=== PATIENT | male | born 1950 | race Caucasian/White ===

== ENCOUNTER 2024-12-24 14:24 | Outpatient (CLI) | payer MEDICARE, SELFPAY ==
--- NOTE | ~2024-12-24 | CT_ITS ---
History: Fall PROCEDURE: CT head without contrast. COMPARISON: None TECHNIQUE: Axial imaging of the head performed from the skull base to the vertex without IV contrast. Sagittal a nd coronal reformations obtained. DLP: 605 mGy-cm FINDINGS: The ventricles are enlarged. The dilatation of the ventricles is proportional to the degree of sulcal prominence, not uncommon in the senescent brain. Decreased attenuation is identified within the periventricular white matter, likely secondary to micr ovascular ischemic disease, in a patient of this age. There is no mass, mass effect or midline shift. There is no abnormal extra-axial fluid collection or intracranial hemorrhage. Visualized paranasal sinuses are clear. The mastoid air cells are well aerated. No acute displaced fractures within the overlying cranium. Impression: No acute intracranial hemorrhage or suspicious mass effect. Reviewed, dictated and finalized at location A. Impression: No acute intracranial hemorrhage or suspicious mass effect.
--- NOTE | ~2024-12-24 | XR_ITS ---
XR shoulder RT min 2V Ordering provider: Idania Shah History: . Injury of rt shoulder . Comparison: None. FINDINGS: BONES: No acute fracture or dislocation. Sclerotic area in the greater tuberosity. Possibility of per meative process in the proximal humerus cannot be excluded. Clinical correlation and follow-up advise d. Elevation of the humeral head is noted. JOINT SPACES: The acromioclavicular joint is normal. The glenohumeral joint shows severe osteoarthrit ic changes with narrowing of the joint space.. SOFT TISSUES: Rounded soft tissue density is seen adjacent to the proximal humerus which may be summa tion shadow but CT is advised for further evaluation to exclude a mass. IMPRESSION: No acute fractures seen. Severe osteoarthritic changes of the glenohumeral joint. Possible soft tissue density near to the proximal humerus. CT is advised to exclude a mass. Reviewed, dictated and finalized at location A. IMPRESSION: No acute fractures seen. Severe osteoarthritic changes of the glenohumeral joint. Possible soft tissue density near to the proximal humerus. CT is advised to exc lude a mass.
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
--- OUTSIDE RECORDS SUMMARY | 2024-12-24 14:37 | XMS_ITS | Continuity of Care Document ---
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 [address] , [place], [place], [id number], [place]. tel:[phone] Referring Provider: Walt Callahan, [address] [facility] [address], [place], [address]. tel:[phone] Family History Family Member Type Diagnosis Age At Onset No Information Payers Payer name Insurance type Covered libertarian ID Authoriza tion(s) MEDICARE [id number] Social History Type Description Quantity Date Captured Comments Sex Male Smoking Status No Information Chief Complaint And Reason For Visit No Information Reason For Referral Reason For Referral No Information History Of Present Illness Encounter Date Complaint History Of Prese nt Illness No Information Functional Status Date Functional Assessmen t No Information Instructions Date Instruction Additional Infor mation No Information Assessments Type Assessment Date No Information Patient Care Teams Name Effective Dates (start - stop) Status Members No Information
--- OUTSIDE RECORDS SUMMARY | 2024-12-24 14:37 | XMS_ITS | Encounter Summary ---
Author Organization [facility] Address [address] [place] [address] Care Team Providers Care Bending Roll Hand Name Role Phone Mario Carroll MD Primary Care Provider [phone] Encounter Details Date Type Department Care Team (Latest Contact Info) Description 11/04/2024 Results Follow-Up [facility] GASTROENTEROLOGY - [address] [facility] [address] [address] [facility] [address] [place] [address] [place] [address] [facility] [address] [place] [address] PATHOLOGY, PATHOLOGY Social History Tobacco Use Types Packs/Day Years Used Date Smoking Tobacco: Former Cigarettes Feeling Safe Answer Date Recorded Are you in a relationship wi th someone who hurts you emotionally and/or physically? 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
--- OUTSIDE RECORDS SUMMARY | 2024-12-24 14:37 | XMS_ITS | Continuity of Care Document ---
Author Organization [facility] Address [address] [place] [address] Phone Care Team Providers Care Lime Slaker Name Role Phone Walt Callahan MD Unavailable Unavailable Allergies, Adverse Reactions, Alerts Substance Reaction Status Criticality Penicillins Active No Information Medications Medication Instructions Dosage Effective Dates (start - stop) Status Comments Naprosyn 500 mg tablet take 1 tablet by oral route 2 times every day with food 500 MG - Active METOPROLOL SUCCINATE (unknown strength) Not Available - Active LOVASTATIN (unknown strength) Not Available - Active METFORMIN HCL (unknown strength) Not Available - Active ASPIRIN EC (unknown strength) Not Available - Active Naprosyn 500 mg tablet take 1 tablet by oral route 2 times every day with food 500 MG - No Longer Active Procedures Procedure Date OFFICE/OUTPATIENT VISIT EST OFFICE/OUTPATIENT VISIT EST OFFICE/OUTPATIENT VISIT EST RADEX SPI LUMBOSAC 2/3 VIEWS OFFICE/OUTPATIENT VISIT EST Rx certified EHR RADEX SPI LUMBOSAC 2/3 VIEWS OFFICE/OUTPATIENT VISIT EST POSTOP FOLLOW-UP VISIT POSTOP FOLLOW-UP VISIT POSTOP FOLLOW-UP VISIT OFFICE/OUTPATIENT VISIT EST OFFICE/OUTPATIENT VISIT EST OFFICE/OUTPATIENT VISIT EST OFFICE/OUTPATIENT VISIT NEW Advance Directives Directive Yes / No Effective Date File Name No Information Encounters Encounter Description Practice Location Reason(s) For Visit Diagnoses Date Provider Providers Copied on Encounter OFFICE/OUTPA TIENT VISIT EST [facility], [address], [address], [place] tel:[phone] [facility] My left leg is hurting alot (chief complaint) Body mass index (BMI) 38.0-38.9, adultLeft lumbar radiculitis Nov- 7 Callahan Walt. [address] [facility] [place], [id number] . tel: [phone] OFFICE/OUTPA TIENT VISIT EST [facility], [address] [facility] [address] [address], [place], [address], [place] tel:[phone] [facility] I am about the same (chief complaint) Body mass index (BMI) 38.0-38.9, adultPersonal history of nicotine dependenceLow back pain Callahan Walt. [address] [facility] [place], [place], [id number] . tel: [phone] OFFICE/OUTPA TIENT VISIT EST [facility], [address], [address], [place] tel:[phone] [facility] The medicine and therapy did not help much (chief complaint) Body mass index (BMI) 38.0-38.9, adultLow back pain 6 [place] Godoy. [address] [facility] [place], [id number] . tel: [phone] [facility], [address] [facility] [address] [address], [place], [address], [place] tel:[phone] [facility] No Information 6 Callahan Walt. [address] [facility] [place], [id number] . tel:[phone] OFFICE/OUTPA TIENT VISIT EST [facility], [address] [address], [place], [address], [place] tel:[phone] [facility] My back and legs hurt alot (chief complaint) Low back painBody mass index (BMI) 38.0-38.9, adult Jun- 6 [place] Godoy. [address] [place], [place], [id number] . tel: [phone] Referring Provider: Mike Mckeon, RETIRED [address] [facility] [address], [place], [address]. tel:[phone] OFFICE/OUTPA TIENT VISIT EST [facility], [address], [address], [place] tel:[phone] [facility] Some of my back and left leg pain is coming back (chief complaint) ObesityLow Back PainHip pain, left 5 [place] Godoy. [address] [facility] [place], [place], [address] . tel: [phone] Referring Provider: Mike Mckeon, RETIRED [address], [place], [address]. tel:[phone] [facility], [address], [address], [place] tel:[phone] [facility] I am doing pretty good (chief complaint) Lumbar StenosisObesity 5 [place] Godoy. [address] [facility] [place], [address] . tel: [phone] [facility], [address], [address], [place] tel:[phone] [facility] I am feeling pretty good (chief complaint) ObesityLumbar Radiculopathy 5 [place]. [address] [place], [address] . tel: [phone] [facility], [address], [address], [place] tel:[phone] [facility] I am feeling pretty good (chief complaint) post-op (chief complaint) ObesityLumbar Radiculopathy 5 [place]. [address] [address] [place], [address] . tel: [phone] [facility], [address], [address], [place] tel:[phone] [facility] Lumbar Radiculopathy 5 [place] Godoy. [address] [place], [place], [address] . tel: [phone] OFFICE/OUTPA TIENT VISIT EST [facility], [address], [address], [place] tel:[phone] [facility] My left leg hurts alot (chief complaint) ObesityLumbar Radiculopathy 5 [place] Godoy. [address] [address] [facility], [place], [place], [address] . tel: [phone] OFFICE/OUTPA TIENT VISIT EST [facility], [address], [address], [place] tel:[phone] [facility] My left leg and back hurt alot today (chief complaint) ObesityLumbar StenosisLumbar Radiculopathy 4 [place] Godoy. [address] [place], [place], [address] . tel: [phone] OFFICE/OUTPA TIENT VISIT EST [facility], [address], [address], [place] tel:[phone] [facility] My left leg is pretty bad today (chief complaint) ObesityLumbar Radiculopathy 0 8 4 [place] [address]. [address] [place], [place], [address] . tel: [phone] OFFICE/OUTPA TIENT VISIT NEW [facility], [address], [address], [place] tel:[phone] [facility] My back and left leg bother me (chief complaint) ObesityLow Back PainParasthesia s of any extremity 0 5- 4 [place] Godoy. [address] [place], [place], [address] . tel: [phone] Referring Provider: Mike Mckeon, RETIRED [address] [facility] [address], [place], [address]. [phone] Family History Family Member Type Diagnosis Age At Onset Father Problem (finding) Heart disease Mother Problem (finding) cancer Sister Problem (finding) Maternal history of loraine betes mellitus Payers Payer name Insurance type Covered democrat ID Authoriza tion(s) [employer] Gold Choice PF OT [id number] Social History Type Description Quantity Date Captured Comments Alcohol Use Details Caffeine Use Details Unknown Tobacco Use Status Occasional tobacco smoker Smoking Status Light tobacco smoker Smoking Tobacco Use Details Cigar: No Details Available Cigar: 2 Cigars per day Sex Male Vital Signs Date / Time: Height Weight BMI Pulse Rate Blood Pressure Temperature Respiratory Rate Body Surface Area Head Circumference Head Circ. Percentile Wt./Omari. Percentile BMI percentile Pulse Ox Inhaled Ox 10:58 AM 68.00 in 113.398 kg (250.00 lbs) 38.0 1 kg/m eter (2) Chief Complaint And Reason For Visit From encounter dated '11/30/2016 10:35'. My left leg is hurting alot (chief complaint) Reason For Referral Reason For Referral No Information Plan Of Treatment Date Type Action Status Goal Tobacco cessation counseling completed Referral Ordered: INJ FORAMEN EPIDURAL L/S LT L2 Appointment date/timeframe: 12/04/2016 ordered Referral Referred To: Jessi Brooks [address] [place], [phone] Ordered: Referrals: Jessi Brooks -Maintenance Department Manager Consult ordered Referral Ordered: MRI SPI CANAL&CNTS C-/C+ LMBR Appointment date/timeframe: 08/11/2016 ordered Referral Ordered: RADEX CH 2 VIEWS FRNT&LAT ordered Referral Ordered: INJ FORAMEN EPIDURAL L/S LT L3 possible L4 ordered Referral Ordered: MRI SPI CANAL&CNTS LMBR C-MATRL Appointment date/timeframe: 07/24/2014 ordered Referral Ordered: MUSC TEST DONE W/N TEST COMP (EMG/NCS) Bilateral lower ext Appointment date/timeframe: 07/13/2014 ordered Referral Ordered: RADEX SPI LUMBOSAC 2/3 VIEWS ordered History Of Present Illness Encounter Date Complaint History Of Prese nt Illness My left leg is hurting alot I am about the same The medicine and therapy did not help much My back and legs hurt alot Some of my back and left leg pain is coming back I am doing pretty good I am feeling pretty good I am feeling pretty good My left leg hurts alot My left leg and back hurt alot t arturo My left leg is pretty bad today My back and left leg bother me Functional Status Date Functional Assessmen t No Information Instructions Date Instruction Additional Infor mation At this time I feel the patient would benefit from a course of non-operative management. I will start the patient on Naprosyn 500 mg p.o b.i.d for the next three weeks. Finally, I will arrange a course of epidural steroid injections, left L2 transforaminal by my partner Dr. Romero or Dr. Oliver. I would like to see the patient again in 4-6 weeks. All the patient's questions were answered. Related to Left lumbar radiculitis Dietary needs education Related to Body mass index (BMI) 38.0-38.9, adult Take medication as directed. Rel ated to Left lumbar radiculitis Continue home exercise program. Related to Left lumbar radiculitis Dietary needs education Related to Body mass index (BMI) 38.0-38.9, adult Continue home exercise program. Related to Low back pain Dietary needs education Related to Body mass index (BMI) 38.0-38.9, adult At this time an MRI of the lumbar spine with and without contrast is needed to assess for soft tissue or disc pathology that may be contributing to the patient's continued low back pain symptoms. I encouraged the patient to continue doing the home exercises prescribed by the physical therapist. I will see the patient again after the MRI is completed. All the patient's questions were answered. Related to Low back pain Dietary needs education Related to Body mass index (BMI) 38.0-38.9, adult At this time, I feel the patient would benefit from a course of non-operative management. I will start the patient on Naprosyn 500mg p.o. b.i.d. for the next three weeks. I will also start the patient in physical therapy to work on range of motion and strengthening of the lumbar spine and modalities as seen fit by the physical therapist. I discussed with the patient the importance of continuing home therapy once formal therapy has ended. I would like to see the patient again in six weeks. All the patient's questions were answered. Related to Low back pain Dietary needs education Related to Body mass index (BMI) 38.0-38.9, adult Take medication as directed. Rel ated to Low back pain Continue home exercise program. Related to Low back pain At this time, I feel the patient would benefit from a course of non-operative management. I will start the patient on Naprosyn 500mg p.o. b.i.d. for the next three weeks. I will also start the patient in physical therapy to work on range of motion and strengthening of the lumbar spine and modalities as seen fit by the physical therapist. I discussed with the patient the importance of continuing home therapy once formal therapy has ended. I would like to see the patient again in six weeks. All the patient's questions were answered. Related to Hip pain, left Continue home exercise program. Related to Low Back Pain Take medication as directed. Rel ated to Low Back Pain Dietary needs education Related to Obesity, unspecified Take medication as directed. Rel ated to Lumbar Stenosis Continue home exercise program. Related to Lumbar Stenosis Dietary needs education Related to Obesity, unspecified Dietary needs education Related to Obesity, unspecified At this time, we hav e exhausted all non-operative management for this patient in the form of physical therapy, anti-inflammatories, epidural steroid injections, and life style modifications, all of which have failed to alleviate the patient's back and leg symptoms. I feel the patient would be an excellent candidate for a transforaminal lumbar interbody fusion at the L3-4 and L4-5 levels. The risks and benefits associated with the procedure were discussed at length with the patient which include bleeding, infection, nerve injury, non-union, continued pain, and need for further surgery. I also discussed the risk of injury to a nerve resulting in weakness in one or both legs, risk of re-herniation of more disc material, risk of dural tear resulting in a CSF leak requiring further surgery, and the risk of developing blood clots in their leg that could result in pulmonary embolus or stroke as well as possible blindness. The patient understood these risks and benefits and wished to proceed with the above-stated procedure. We will have the patient see their primary care provider prior to surgery for pre-operative evaluation and risk stratification for surgery. In addition we will obtain routine blood work prior to surgery. All the patient's questions were answered. Related to Lumbar Radiculopathy Dietary needs education Related to Obesity, unspecified Continue home exercise program. Related to Lumbar Radiculopathy Take medication as directed. Rel ated to Lumbar Radiculopathy At this time I feel the patient would benefit from a course of non-operative management. I want the patient to continue taking the Naprosyn twice a day for the next three weeks. In addition, I will start the patient in physical therapy twice a week for three weeks to work on range of motion and strengthening of the back and legs. Finally, I will arrange a course of epidural steroid injections, left L3 possible L4 transforaminal epidural steroid injections. I would like to see the patient again in 4-6 weeks. All the patient's questions were answered. Related to Lumbar Radiculopathy Dietary needs education Related to Obesity, unspecified Continue home exercise program. Related to Lumbar Radiculopathy Take medication as directed. Rel ated to Lumbar Radiculopathy At this time an MRI of the lumbar spine is needed to assess for soft tissue or disc pathology that may be contributing to the patient's back pain and right leg radicular type symptoms. While waiting for the MRI, I want the patient to continue taking the Naprosyn 500mg PO BID. I will see the patient after the MRI is completed. All the patient's questions were answered. Related to Lumbar Radiculopathy Dietary needs education Related to Obesity, unspecified Dietary needs education Related to Obesity, unspecified Take medication as directed. Rel ated to Low Back Pain Continue home exercise program. Related to Low Back Pain Assessments Type Assessment Date assessment Body mass index (BMI) 38.0-38.9, adult assessment Left lumbar radiculitis 017 Patient Care Teams Name Effective Dates (start - stop) Status Members No Information
--- OUTSIDE RECORDS SUMMARY | 2024-12-24 14:37 | XMS_ITS | Clinical Summary ---
Author Organization [facility] Address [address] [place] [address] Care Team Providers Care Agriculture Teacher Name Role Phone Mario Carroll MD Primary Care Provider + Yahaira Blair TOBACCO PRIZER-PORTFOLIO MGR Unavailable + Mario Carroll MD Unavailable + Source Comments [facility],non-owned Affiliates and Associated Physician Practices is amultiple site organization consisting of ambulatory clinics and hospital sitesin [place], [place], [place] and [place]. This disclosure is being madepursuant to the Care Everywhere program and may not contain all information available regarding this patient. Last updated 18.[facility] Allergies Active Allergy Reactions Criticality Noted Date Comments Penicillins Unknown 11/06/2024 Medications * Be aware that medications may not be up to date on this document. Alwaysverify current medications with the patient. oxyCODONE-acet aminophen (Percocet) 10-325 MG tablet take 1 tablet by oral route every 8 hours for 90 days Oral 3 for 90 Active rosuvastatin (Crestor) 20 MG tabletIndicati ons:PAF (paroxysmal atrial fibrillation) (HCC),Type 2 diabetes mellitus without complication, without long-term current use of insulin (HCC) Take 1 (one) tablet by mouth once daily 90 tablet 1 09/10/19 24 Active albuterol HFA (ProAir HFA) 108 (90 Base) MCG/ACT inhalerIndicat ions:Shortness of breath Inhale 2 (two) puffs by mouth every 6 hours as needed 8.5 g 3 08/19/19 25 Active gabapentin (Neurontin) 100 MG capsule Take 1 (one) capsule by mouth 3 times daily 270 capsule 1 08/19/19 25 Active potassium chloride ER 10 MEQ tablet Take 1 (one) tablet by mouth once daily 90 tablet 1 08/19/19 25 Active lisinopril (Prinivil; Zestril) 5 MG tabletIndicati ons:Type 2 diabetes mellitus without complication, without long-term current use of insulin (HCC) Take 1 (one) tablet by mouth once daily 90 tablet 1 08/19/19 25 Active metFORMIN (Glucophage) 500 MG tabletIndicati ons:Type 2 diabetes mellitus without complication, without long-term current use of insulin (HCC) Take 1 (one) tablet by mouth 2 times daily with morning and evening meal 180 tablet 1 08/19/19 25 Active Additional Information Patient not taking.Reported on 11/06/2024 nitroGLYCERIN (Nitrostat) 0.4 MG tablet Dissolve 1 (one) tablet under the tongue every 5 minutes as needed for Angina 25 tablet 08/19/19 25 Active naloxone HCl (Narcan) 4 MG/0.1ML nasal spray EMERGENCY USE ONLY: Administer 1 spray (4 mg) in one nostril one time. May repeat in alternating nostrils every 2-3 min until responsive or EMS arrives. 11/05/19 25 Active fluticasone propionate (Flonase) 50 MCG/ACT nasal spray ADMINISTER 2 SPRAYS IN EACH NOSTRIL DAILY 48 g 1 11/18/19 25 Active Eliquis 5 MG tablet TAKE 1 TABLET BY MOUTH TWICE A DAY 60 tablet 12/03/19 25 Active amiodarone (Cordarone) 200 MG tablet TAKE 1 TABLET BY MOUTH EVERY DAY 30 tablet 12/03/19 25 Active metoprolol tartrate IR (Lopressor) 25 MG tablet TAKE 1 TABLET BY MOUTH TWICE A DAY 60 tablet 12/03/19 25 Active amiodarone (Cordarone) 200 MG tablet Take 1 (one) tablet by mouth once daily 11/06/19 25 025 Discontinued apixaban (Eliquis) 5 MG tablet Take 1 (one) tablet by mouth 2 times daily 11/07/19 25 025 Discontinued clopidogrel (plaVIX) 75 MG tablet Take 1 (one) tablet by mouth once daily 11/07/19 25 025 metoprolol tartrate IR (Lopressor) 25 MG tablet Take 1 (one) tablet by mouth 2 times daily 11/05/19 025 Discontinued Active Problems Problem Noted Date Diagnosed Date Aortic valve disorder 11/05/2024 Complication of surgical procedure 11/05/2024 Primary osteoarthritis of right ankle 11/05/2024 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 gonzalo 11/05/2024 Lumbar radiculopathy 11/05/2024 Antiplatelet or antithrombotic long-term use Acute blood loss anemia 10/31/2024 Gastrointestinal hemorrhage with melena 10/31/19 Elevated troponin 10/29/2024 Hx of CABG 10/28/2024 Acute gastrointestinal hemorrhage 10/28/2024 Dyspnea on exertion 10/06/2024 Prediabetes 10/06/2024 Cardiovascular stress test abnormal 08/25/2024 Pain in left lower leg 09/10/2023 Obesity, morbid 09/10/2023 Chest pain 03/19/2023 09/10/2023 Seasonal allergic rhinitis 01/23/202309/10 Neuropathy 01/23/2023 09/10/2023 Gout 01/23/2023 09/10/2023 S/P reverse total shoulder arthroplasty, left 09/10/2023 COPD (chronic obstructive pulmonary disease) 08/202109/10/2023 Type 2 diabetes mellitus without complication HLD (hyperlipidemia) 05/16/2019 Atherosclerotic heart diseas e of [place] coronary artery without angina pectoris 05/16/2019 HTN (hypertension) 05/16/2019 PAF (paroxysmal atrial fibrillation) 05/16/2019 Aortic valve stenosis 11/09/2017 09/10/2023 Primary erectile dysfunction 10/15/201712/2023 Chronic low back pain 10/15/2017 09/10/2023 Resolved Problems Problem Noted Date Diagnosed Date Resolved Date Intermittent claudication 12/07/2020 09/10/2023 Encounters Date Type Department Care Team Description 12/23/2024 Telephone [facility] Family [address], [address] [place] [address] Mario Craroll MD Update 12/02/2024 Refill [facility] [address] [facility], [facility] [address] [place] [phone] Mario Carroll MD Refill Request 11/15/2024 Refill [facility] [address] [phone] Mario Carroll MD Refill Request 11/10/2024 Telephone [facility] [address] [facility], [address] [address] Mario Carroll MD Medication Problem 11/07/2024 Patient Outreach [facility] - Care Coordination [address] [place] [phone] Sharon Jaramillo MSW ER UC Follow-up 11/06/2024 2:22 PM CDT - 11/06/2024 4:29 PM CDT Emergency ER at [facility] [address] [place] [address] Moses Denton MD Other specified hypotension Discharge Disposition: Left Against Medical Advice/Discontinued Care 11/06/2024 8:30 AM CDT Office Visit [facility] [address] [facility], [address] [phone] Lore Chery APRN-PORTFOLIO MGR Acute blood loss anemia (Primary Dx); History of gastrointestinal bleeding; Low blood pressure reading; Weakness; Coronary arteriosclerosis; Atrial fibrillation, unspecified type (HCC); Hyperlipidemia, unspecified hyperlipidemia type; History of coronary artery bypass graft; History of anemia 11/06/2024 Travel 11/06/2024 Nurse Triage [facility] [address] [facility], [address] [phone] Mario Carroll MD Patient Requested Call 10/27/2024 Travel from Last 3 Months Immunizations Immunization Administration Dates Next Due Stampt primary monoval ent 12+ yr 0.3mL Purple cap 12/28/2020,12/07/2020 FLU VACCINE QUAD IIV4 SPLIT 0.25 ML IM 6 INFLUENZA VACCINE 05/06/2022 INFLUENZA VACCINE, HIGH-DOSE , TRIV. (FLUZONE HIGH-DOSE TRIVALENT; 65Y+) (HD-IIV3) 05/06/2024 INFLUENZA VACCINE, QUADR. (A FLURIA, FLUZONE QUADRIVALENT; 6MO+) (IIV4) 04/10/2022 INFLUENZA VACCINE, QUADR. (F LUZONE; FLULAVAL; FLUARIX; AFLURIA QUADRIVALENT; 6MO+), 0.5 ML (IIV4) 04/19/2017 PNEUMOCOCCAL PPSV23 08/18/2019 Pneumococcal Pcv13 Conj 04/19/2017 Family History Medical History Relation Name Comments Other - Cardiac Father Myocardial i nfarction Relation Name Status Comments Father Social History Tobacco Use Types Packs/Day Years Used Date Smoking Tobacco: Former Cigarettes Cigars Smokeless Tobacco: Never Tobacco Cessation:Counseling Given: Not Answered Alcohol Use Standard Drinks/Week Comments Not Currently 0 (1 standard drink = 0.6 oz pur e alcohol) AUDIT-C Answer Date Recorded Q1: How often do you have a drink containing alcohol? Never 11/06/2024 Q2: How many drinks containi ng alcohol do you have on a typical day when you are drinking? Patient does not drink Q3: How often do you have si x or more drinks on one occasion? Never 11/06/2024 PHQ-2 Answer Date Recorded Patient Health Questionnaire-2 Score 0 08/07/2024 Sex and Gender Information Value Date Recorded Sex Assigned at Not on file Legal Sex Male 3:39 PM DICTATING TRANSCRIBING MACHINE SERVICER Gender Identity Not on file Sexual Orientation Not on file Last Filed Vital Signs Vital Sign Reading Time Taken Comments Blood Pressure 142/64 11/06/2024 3:59 PM CDT Pulse 54 11/06/2024 3:59 PM CDT Temperature 36.5 C (97.7 F) 11/06/2024 1:44 PM CDT Respiratory Rate 13 11/06/2024 3:59 PM CDT Oxygen Saturation 96% 11/06/2024 3:59 PM CDT Inhaled Oxygen Concentration - - Weight 111.1 kg (244 lb 14.9 oz) 11/06/2024 1:44 PM CDT Height 172.7 cm (5' 8 ) 11/06/2024 1:44 PM CDT Body Mass Index 37.24 11/06/2024 1:44 PM CDT Plan of Treatment Upcoming Encounters Date Type Department Care Team (Late st Contact Info) Description 02/09/2025 8:45 AM CDT Office Visit [facility] [address] [facility], [facility] [address] [place] [address] Mario Carroll MD [address] [facility] [address] [place] [address] Health Maintenance Due Date Last Done Comments COLOGUARD (AGES 45-75) - COLON CA SCREENING [address] COLONOGRAPHY - COLON CA SCREENING 1950 FIT - COLON CA SCREENING 1950 FLEX SIG - COLON CA SCREENING 1950 HEPATITIS C SCREENING 06/13/1969 DTAP/TDAP/TD VACCINES (1 - Tdap) 1970 ZOSTER VACCINE (1 of 2) 2001 Respiratory Syncytial Virus (RSV) Vaccine Pt: or over 60 yrs (1 - Risk 60-74 years 1-dose series) 2011 AAA SCREENING 2016 DIABETES-FOOT EXAM WITH MONOFILAMENT 05/16/2019 COVID-19 VACCINE ( season) 2024 12/28/2020, 12/07/2020 DIABETES-HGB A1C 04/30/2025 10/28/2024, 10/2024, 11/19/2023, Additional history exists DIABETES - URINE PROTEIN SCREENING 08/08/2025 08/08/2024, 11/19/2023 DIABETES-SERUM CREATININE 11/06/20252024, 11/04/2024, 11/03/2024, Additional history exists DIABETES RETINOPATHY SCREENING 05/09/2026 05/09/2024 (Done Outside Per Report) COLONOSCOPY - COLON CA SCREENING 01/13/2030 01/14/2020 (Done Outside Per Report) Colorectal Cancer Screening 01/13/2030 PNEUMOCOCCAL VACCINE 50+ Completed 08/18/2019, 04/06 INFLUENZA VACCINE Completed 05/06/2024, , 04/10/2022, Additional history exists DEPRESSION SCREENING Completed 08/07/2024, 09/10/19 24 MEDICARE AWV CALENDAR YEAR Completed 08/07/2024, 09/10/2023 HEPATITIS B VACCINE Aged Out No longe r eligible based on patient's age to complete this topic HIB VACCINE Aged Out No longer eligi ble based on patient's age to complete this topic HPV VACCINE Aged Out No longer eligi ble based on patient's age to complete this topic MENINGOCOCCAL (Group B) VACCINE SHARED DECISION-MAKING Aged Out No longer eligible based on patient's age to complete this topic MENINGOCOCCAL GROUPS A/C/Y/W VACCINE Aged Out No longer eligible based on patient's age to complete this topic Procedures Procedure Name Priority Date/Time Associated Diagnosis Comments CARDIAC EKG ORDER 11/07/2024 5:1 0 PM CDT XR CHEST 1VW PORTABLE STAT 11/06/2024 3:07 PM CDT Other specified hypotension TROPONIN-I HIGH SENSITIVE REFLEX 1HOUR Timed 11/06/2024 2:51 PM CDT TROPONIN-I HIGH SENSITIVE BASELINE + 1HR STAT 11/06/2024 1:52 PM CDT B-TYPE NATRIURETIC PEPTIDE STAT 11/06/2024 1:52 PM CDT COMPREHENSIVE METABOLIC PANEL STAT 11/06/2024 1:52 PM CDT CBC W AUTO DIFFERENTIAL STAT 11/06/2024 1:52 PM CDT EKG 12-LEAD STAT 11/06/2024 1:49 PM CDT Other specified hypotension MICROALB/CREAT RATIO URINE RANDOM PANEL Routine 08/08/2024 9:27 AM DICTATING TRANSCRIBING MACHINE SERVICER Type 2 diabetes mellitus without complication, without long-term current use of insulin HEMOGLOBIN A1C Routine 08/08/2024 9:27 AM DICTATING TRANSCRIBING MACHINE SERVICER Type 2 diabetes mellitus without complication, without long-term current use of insulin from Last 3 Months or Most Recently Relevant to Health Maintenance Results * CARDIAC EKG ORDER (11/07/2024 5:10 PM CDT) Narrative 11/07/2024 5:10 PM CDT Ordered by an unspecified provider. us Scanned Document CARDIAC SERVICES ORDERABLES Fin al Result * XR CHEST 1VW PORTABLE (11/06/2024 3:07 PM CDT) Anatomical Region Laterality Modality Chest Radiographic Faith ging 11/06/2024 3:09 PM CDT Narrative 11/06/2024 3:14 PM CDT PROCEDURE(s): XR CHEST 1VW PORTABLE DATE AND TIME OF EXAM(s): 11/06/2024 3:07 PM INDICATION(s): I95.89: Other hypotension. COMPARISON(s): Chest radiograph dated 01/24/2024. FINDINGS: Mediastinal wires are seen. A cardiac loop recorder is seen. There is cardiomegaly. The lung volumes are relatively low. No definite focal consolidation or infiltrate is seen. No pneumothoraces or pleural effusion is seen. No acute osseous abnormalities are seen. > Interpreting Provider: Keiry Palomares MD on 11/06/2024 3:14 PM Procedure Note Keiry Palomares MD - 11/06/2024 PROCEDURE(s): XR CHEST 1VW PORTABLE DATE AND TIME OF EXAM(s): 11/06/2024 3:07 PM INDICATION(s): I95.89: Other hypotension. COMPARISON(s): Chest radiograph dated 01/24/2024. FINDINGS: Mediastinal wires are seen. A cardiac loop recorder is seen. There is cardiomegaly. The lung volumes are relatively low. No definite focal consolidation or infiltrate is seen. No pneumothoraces or pleural effusion is seen. No acute osseous abnormalities are seen. > Interpreting Provider: Keiry Palomares MD on 11/06/2024 3:14 PM Ruth Mike Frandy TOBACCO PRIZER-PORTFOLIO MGR DIAGNOSTIC IMAGING OR DERABLES Final Result * (ABNORMAL) TROPONIN-I HIGH SENSITIVE REFLEX 1HOUR (11/06/2024 2:51 PM CDT) Troponin I High Sensitive 77(H) <=35 ng/L 11/06/2024 3:20 PM CDT [facility] Delta Troponin I HS <0 <6 ng/L 11/06/2024 3:20 PM CDT [facility] Blood BLOOD SPECIMEN / Unknown Venipuncture / Unknown 11/06/2024 2:51 PM CDT 11/06/2024 2:56 PM CDT Ruth Wise TOBACCO [facility] - CHEMISTRY ORDER TRAVIS Final Result [facility] [address] [facility] [place] [address] * (ABNORMAL) TROPONIN-I HIGH SENSITIVE BASELINE + 1HR (11/06/2024 1:52 PM CDT) [facility] Troponin I High Sensitive 92(H) <=35 ng/L 11/06/2024 2:22 PM CDT [facility] Blood BLOOD SPECIMEN / Unknown Venipuncture / Unknown 11/06/2024 1:52 PM CDT 11/06/2024 1:59 PM CDT Ruth Wise TOBACCO [facility] - CHEMISTRY ORDER TRAVIS Final Result Performing Organization Address City/[facility]/ZIP Co de Phone Number [facility] [address] [place] [address] * (ABNORMAL) CBC W AUTO DIFFERENTIAL (11/06/2024 1:52 PM CDT) [facility] WBC 9.1 4.0 - 10.7 x10E9/L 11/06/2024 2:02 PM CDT [facility] RBC Count 3.11(L) 4.30 - 5.80 x10E12/L 11/06/2024 2:02 PM CDT [facility] Hemoglobin 8.6(L) 13.3 - 17.5 g/dL 11/06/2024 2:02 PM CDT [facility] Hematocrit 28.5(L) 38.7 - 51.1 % 11/06/2024 2:02 PM CDT [facility] MCV 91.6 80.0 - 98.0 fL 11/06/2024 2:02 PM [facility] MCH 27.7 26.7 - 33.6 pg 11/06/2024 2:02 PM [facility] MCHC 30.2(L) 31.7 - 36.3 g/dL 11/06/2024 2:02 PM [facility] RDW-CV 17.7(H) 11.3 - 14.8 % 11/06/2024 2:02 PM [facility] Platelet Count 276 150 - 420 x10E9/L 11/06/2024 2:02 PM [facility] MPV 9.5 7.8 - 11.4 fL 11/06/2024 2:02 PM [facility] Neutrophil % 79.4(H) 41.0 - 74.0 % 11/06/2024 2:02 PM [facility] Lymphocyte % 11.5(L) 17.0 - 47.0 % 11/06/2024 2:02 PM [facility] Monocyte % 6.9 3.0 - 11.0 % 11/06/2024 2:02 PM [facility] Eosinophil % 0.5 0.0 - 7.0 % 11/06/2024 2:02 PM [facility] Basophil % 0.4 0.0 - 1.6 % 11/06/2024 2:02 PM [facility] Immature Granulocytes % 1.3(H) 0.0 - 1.0 % 11/06/2024 2:02 PM [facility] Neutrophil Absolute 7.25 1.60 - 7.50 x10E9/L 11/06/2024 2:02 PM [facility] Lymphocyte Absolute 1.05 1.00 - 4.40 x10E9/L 11/06/2024 2:02 PM [facility] Monocyte Absolute 0.63 0.15 - 1.00 x10E9/L 11/06/2024 2:02 PM [facility] Eosinophil Absolute 0.05 0.00 - 0.60 x10E9/L 11/06/2024 2:02 PM [facility] Basophil Absolute 0.04 0.00 - 0.13 x10E9/L 11/06/2024 2:02 PM CDT [facility] NRBC 1.0(H) <=0.0 /100 WBC 11/06/2024 2:02 PM CDT [facility] Blood BLOOD SPECIMEN / Unknown Venipuncture / Unknown 11/06/2024 1:52 PM CDT 11/06/2024 1:59 PM CDT Ruth Wise [facility] - HEMATOLOGY ORDE RABLES Final Result Performing Organization Address [facility] Co de Phone Number [facility] [address] [phone] * (ABNORMAL) B-TYPE NATRIURETIC PEPTIDE (11/06/2024 1:52 PM CDT) Pathologist [facility] BNP 391(H) <=100 pg/mL 11/06/2024 2:23 PM CDT [facility] Blood BLOOD SPECIMEN / Unknown Venipuncture / Unknown 11/06/2024 1:52 PM CDT 11/06/2024 1:59 PM CDT Narrative [facility] - 11/06/2024 2:23 PM CDT A cutoff of 100 pg/mL has been demonstrated to provide the maximal combination of sensitivity, specificity, and negative predictive value for contributing to the diagnosis of congestive heart failure (CHF) only. A B-Type Natriuretic Peptide (BNP) value greater than or equal to 100 pg/mL is consistent with a diagnosis of CHF in the appropriate clinical setting. False positive results are more common in females greater than 75 years of age. Blood concentrations of natriuretic peptides may also be elevated in patients with myocardial infarction and in patients who are candidates for or are undergoing renal dialysis. Ruth Wise [facility] - CHEMISTRY ORDER TRAVIS Final Result Performing Organization Address City/[facility]/ZIP Co de Phone Number [facility] [address] [phone] * (ABNORMAL) COMPREHENSIVE METABOLIC PANEL (11/06/2024 1:52 PM CDT) [facility] Glucose 143(H) 70 - 99 mg/dL 11/06/2024 2:17 PM [facility] Sodium 139 136 - 145 mmol/L 11/06/2024 2:17 PM [facility] Potassium 3.5 3.5 - 5.1 mmol/L 11/06/2024 2:17 PM [facility] Chloride 102 98 - 107 mmol/L 11/06/2024 2:17 PM [facility] CO2 26 22 - 29 mmol/L 11/06/2024 2:17 PM [facility] Calcium 9.2 8.4 - 10.4 mg/dL 11/06/2024 2:17 PM [facility] Anion Gap 11 6 - 16 mmol/L 11/06/2024 2:17 PM [facility] BUN 9 7 - 26 mg/dL 11/06/2024 2:17 PM [facility] Creatinine 1.23 0.72 - 1.25 mg/dL 11/06/2024 2:17 PM [facility] Alkaline Phosphatase 57 40 - 150 U/L 11/06/2024 2:17 PM [facility] ALT 11 6 - 57 U/L 11/06/2024 2:17 PM [facility] AST 24 10 - 48 U/L 11/06/2024 2:17 PM [facility] Protein Total 6.7 6.4 - 8.3 gm/dL 11/06/2024 2:17 PM [facility] Albumin 3.3(L) 3.4 - 5.0 gm/dL 11/06/2024 2:17 PM [facility] Bilirubin Total 0.4 0.2 - 1.2 mg/dL 11/06/2024 2:17 PM [facility] eGFR by CKD-EPI 62(L) >=90 mL/min/1.7 3 m2 11/06/2024 2:17 PM [facility] Blood BLOOD SPECIMEN / Unknown Venipuncture / Unknown 11/06/2024 1:52 PM CDT 11/06/2024 1:59 PM CDT Ruth Wise TOBACCO PRIZER-PORTFOLIO MGR LAB - CHEMISTRY ORDER TRAVIS Final Result Performing Organization Address City/[facility]/ZIP Co de Phone Number [facility] [address] [address] * EKG 12-LEAD (11/06/2024 1:49 PM CDT) Ventricular Rate 65 BPM [facility] Atrial Rate 65 BPM [facility] P-R Interval 190 ms [facility] QRS Duration ms 112 ms [facility] Q-T Interval ms 448 ms [facility] QTC Calculation (Bezet) 465 ms [facility] Calculated P [place] 62 degrees [facility]USE Calculated R [place] 50 degrees [facility] MUSE Calculated T [place] 54 degrees [facility] Interpretation EKG Normal sinus rhythm Incomplete right bundle branch block ST abnormality, possible inferior / lateral ischemia Abnormal ECG No previous ECGs available Confirmed by MD SHEILA, GORAN ([id number]) on 11/06/2024 9:31:16 PM [facility] MUSE 11/06/2024 1:49 PM CDT 11/06/2024 9:31 PM CDT Ruth Mike Wise [facility] ECG ORDERABLES Edite d Result - Final Performing Organization Address [facility] Co de Phone Number [facility] * MICROALB/CREAT RATIO URINE RANDOM PANEL (08/08/2024 9:27 AM DICTATING TRANSCRIBING MACHINE SERVICER) Creatinine Urine 98 20 - 320 mg/dL [facility] Microalbumin Urine 1.1 mg/dL [facility] Comment: Reference Range Not established Microalbumin/Creat inine Ratio 11 <30 mg/g creat [facility] Comment: The ADA defines abnormalities in albumin excretion as follows: Albuminuria Category Result (mg/g creatinine) Normal to Mildly increased <30 Moderately increased 30-299 Severely increased > OR = 300 The ADA recommends that at least two of three specimens collected within a 3-6 month period be abnormal before considering a patient to be within a diagnostic category. Test Performed at: [facility] [id number] [place] [address] REBA DE LEON MD Urine URINE SPECIMEN OBTAINED BY CLEAN CATCH PROCEDURE / Unknown 08/08/2024 9:27 AM DICTATING TRANSCRIBING MACHINE SERVICER 08/08/2024 9:28 AM DICTATING TRANSCRIBING MACHINE SERVICER Mario Carroll MD LAB - URINE CHEMISTRY ORDERABL ES Final Result Performing Organization Address [facility] Co de Phone Number [address] [address] * (ABNORMAL) HEMOGLOBIN A1C (08/08/2024 9:27 AM DICTATING TRANSCRIBING MACHINE SERVICER) Hemoglobin A1c 7.1(H) <5.7 % of total Hgb [facility] Comment: For someone without known diabetes, a hemoglobin A1c value of 6.5% or greater indicates that they may have diabetes and this should be confirmed with a follow-up test. For someone with known diabetes, a value <7% indicates that their diabetes is well controlled and a value greater than or equal to 7% indicates suboptimal control. A1c targets should be individualized based on duration of diabetes, age, comorbid conditions, and other considerations. Currently, no consensus exists regarding use of hemoglobin A1c for diagnosis of diabetes for children. REPORT COMMENT: FASTING:YES Test Performed at: [facility] [address] REBA DE LEON MD Blood BLOOD SPECIMEN / Unknown 08/08/2024 9:27 AM DICTATING TRANSCRIBING MACHINE SERVICER 08/08/2024 9:28 AM DICTATING TRANSCRIBING MACHINE SERVICER Mario Carroll MD LAB - CHEMISTRY ORDERABLES Fin al Result Performing Organization Address [facility] Co de Phone Number [address] [address] from Last 3 Months or Most Recently Relevant to Health Maintenance Insurance [facility] Care Teams Agriculture Teacher Relationship Specialty Start Date End Date Mario Carroll MD [address] [address] PCP - General Family Medicine 09/10/23 Mario Carroll MD [address] [address] PCP - Attributed-Sydnee PEPE 08/06/24 Yahaira Blair, TOBACCO PRIZER-PORTFOLIO MGR [address] [address] Nurse Practitioner Nurse Practitioner Family 09/10/23
--- OUTSIDE RECORDS SUMMARY | 2024-12-24 14:37 | XMS_ITS | Encounter Summary ---
Author Organization [facility] Address [address] [place] [address] Care Team Providers Care Fire Operations Forester Name Role Phone Mario Carroll MD Primary Care Provider [phone] Yahaira Blair APRN-HOUSING QUALITY STANDARD INSPECTOR Unavailable + Mario Carroll MD Unavailable [phone] Reason for Visit * Reason Onset Date Comments Update 12/23/2024 Encounter Details Date Type Department Care Team ([facility] Contact Info) Description 12/23/2024 Telephone [facility] - Family Medicine [address] [phone] Mario Carroll MD [address] [phone] Update Social History Tobacco Use Types Packs/Day Years Used Date Smoking Tobacco: Former Cigarettes Cigars Smokeless Tobacco: Never Alcohol Use Standard Drinks/Week Comments Not Currently [...] on file Legal Sex Male 3:39 PM PSYCHOLOGY CLINICIAN Gender Identity Not on file Sexual Orientation Not on file documented as of this encounter Miscellaneous Notes * Telephone Encounter - Hosick, Katherine, MA - 12/23/2024 3:58 PM CDT Gemini cohen...it is just an FYI * Telephone Encounter - Katherine Bates MA - 12/23/2024 11:59 AM CDT Pain Management calling. States Patient told them today and he informed them that he had a fall 8 days ago that he hit his head. They did talk him into going to go get a head CT. Sent the order to [place]. He is complaining of dizziness since the fall. Idania Shah with Injury Specialist [phone] documented in this encounter Plan of Treatment Upcoming Encounters Date Type Department Care Team (Late st Contact Info) Description 02/09/2025 8:45 AM CDT Office Visit [facility] - Family Medicine [address] [phone] Mario Carroll MD [address] [phone] documented as of this encounter Visit Diagnoses Not on filedocumented in this encounter Care Teams Fire Operations Forester Relationship Specialty Start Date End Date Mario Carroll MD [address] [phone] PCP - General Family Medicine 09/10/23 Mario Carroll MD [address] [phone] PCP - Isabela-Sdynee PEPE 08/06/24 Yahaira Blair, WEAVER APPRENTICE-HOUSING QUALITY STANDARD INSPECTOR [address] [phone] Nurse Practitioner Nurse Practitioner Family 09/10/23 documented as of this encounter
--- OUTSIDE RECORDS SUMMARY | 2024-12-24 14:37 | XMS_ITS | Clinical Summary ---
Author Organization [facility] Address [address] [place] [address] Phone Care Team Providers Care Asian Studies Program Chair Name Role Phone Mario Carroll MD Primary Care Provider [phone] Allergies Active Allergy Reactions Criticality Noted Date Comments Penicillins Hives High 10/28/2024 Medications lisinopriL (PRINIVIL) 5 mg tablet Take 5 mg by mouth daily. 5 Active metFORMIN (GLUCOPHAGE) 500 mg tablet Take 500 mg by mouth daily with breakfast. 5 Active rosuvastatin (CRESTOR) 20 mg tablet Take 20 mg by mouth daily. 4 Active potassium CHLORIDE (KLOR-CON) 10 mEq Extended Release tablet Take 10 mEq by mouth daily. 5 Active oxyCODONE-aceta minophen (PERCOCET) 10-325 mg Tablet Take 1 Tablet by mouth every 4 hours as needed for Pain. Active nitroglycerin (NITROSTAT) 0.4 mg Tablet, Sublingual Place 0.4 mg under tongue every 5 minutes as needed. 5 Active gabapentin (NEURONTIN) 100 mg capsule Take 100 mg by mouth 3 times daily. 5 Active albuterol sulfate HFA 90 mcg/actuation aerosol inhaler Take 2 Puffs by inhalation every 6 hours as needed. 5 Active fluticasone propionate (FLONASE) 50 mcg/spray [place], Suspension nasal inhaler Administer 1 [place] in each nostril daily. 5 Active naloxone (NARCAN) 4 mg/spray [place], Non-Aerosol EMERGENCY USE ONLY: Administer 1 spray (4 mg) in one nostril one time. May repeat in alternating nostrils every 2-3 min until responsive or EMS arrives. 2 Each 3 5 Active amiodarone (CORDARONE) 200 mg tablet Take 1 Tablet (200 mg) by mouth daily. 30 Tablet 5 12/06/19 25 apixaban (ELIQUIS) 5 mg tablet Take 1 Tablet (5 mg) by mouth 2 times daily. 60 Tablet 5 12/07/19 25 clopidogreL (PLAVIX) 75 mg Tablet Take 1 Tablet (75 mg) by mouth daily. 30 Tablet 5 12/07/19 25 metoprolol tartrate (LOPRESSOR) 25 mg tablet Take 1 Tablet (25 mg) by mouth 2 times daily. 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 2024 Antiplatelet or antithrombotic long-term use Gastrointestinal hemorrhage with melena 10/31/19 25 Elevated troponin 10/29/2024 Coronary artery disease of b ypass graft of [place] heart with stable angina pectoris 10/29/2024 History of coronary artery bypass graft 10/29/19 25 Acute gastrointestinal hemorrhage 10/28/2024 Dyspnea on exertion 10/06/2024 Chest pain 08/25/2024 Obesity, morbid 09/10/2023 Gout 01/23/2023 Neuropathy 01/23/2023 Atrial fibrillation 09/06/2022 S/P reverse total shoulder arthroplasty, left COPD (chronic obstructive pulmonary disease) 08/2021 Intermittent claudication 12/07/2020 Aortic valve stenosis 11/09/2017 Chronic low back pain 10/15/2017 Coronary arteriosclerosis 10/15/2017 Essential hypertension 10/15/2017 Hyperlipidemia 10/15/2017 Primary erectile dysfunction 10/15/2017 Type 2 diabetes mellitus without complication Encounters Date Type Department Care Team Description 5 External Device Data STL ABSTRACTION Provider, Abstract 5 External Device Data STL ABSTRACTION Provider, Abstract 5 External Device Data STL ABSTRACTION Provider, Abstract 5 Telephone [facility] - [address] [facility] [phone] [facility] [address] [place] [address] Alma Coelho MD VCE 5 9:02 AM CDT Anesthesia Event [facility] End[facility] [address] [place] [address] Giovanna Lai MD 5 8:30 AM CDT - 5 9:00 AM CDT Surgery [facility] [address] [place] [address] Abhilash Cooley MD COLONOSCOPY 5 External Device Data STL ABSTRACTION Provider, Abstract 5 External Device Data STL ABSTRACTION Provider, Abstract 5 External Device Data STL ABSTRACTION Provider, Abstract 5 Results Follow-Up [facility] - [address] [facility] 102 [address] [facility] [address] [place] [address] Alma Coelho MD PATHOLOGY, PATHOLOGY 5 10:41 AM CDT Anesthesia Event [facility] [address] [place] [address] Giovanna Lai MD 5 10:30 AM CDT - 5 11:00 AM CDT Surgery [facility] [address] [place] [address] Alma Coelho MD ESOPHAGOGASTRODUODENOSCOPY 5 8:42 AM CDT - 5 10:06 AM CDT Surgery [facility] Cardiac Shift Boss [address] [place] [address] Mario Chaidez MD Left heart cath with grafts 5 Prep for Surgery [facility] - [address] [facility] [address] [address] [facility] [address] [place] [address] Ramiro Pitt MD 5 9:33 AM CDT - 5 12:37 PM CDT Hospital Encounter [facility] Intensive Care Unit [address] [place] [phone] Paulino Grande MD Mustari, Akhi, MD Halasa, Tariq, MD Backer, Neil, MD Lele, Aditi, Chest pain Discharge Disposition: Home or Self Care 5 Travel from Last 3 Months Family History Medical History Relation Name Comments Colon Cancer Neg Hx Esophageal Cancer Neg Hx Gastric Cancer Neg Hx Liver Cancer Neg Hx Pancreatic Cancer Neg Hx Social History Tobacco Use Types Packs/Day Years Used Date Smoking Tobacco: Former Cigarettes Tobacco Cessation:Counseling Given: Not Answered Feeling Safe Answer Date Recorded Are you in a relationship wi th someone who hurts you emotionally and/or physically? 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 Gender Identity Not on file Sexual Orientation Not on file Last Filed Vital Signs Vital Sign Reading Time Taken Comments Blood Pressure 141/66 11/04/2024 11:27 AM CDT Pulse 69 11/04/2024 9:58 AM CDT Temperature 36.4 C (97.6 F) 11/04/2024 11:27 AM CDT Respiratory Rate 20 11/04/2024 11:27 AM CDT Oxygen Saturation 96% 11/04/2024 11:27 AM CDT Inhaled Oxygen Concentration - - Weight 111.1 kg (245 lb) 11/04/2024 8:55 AM CDT Height 172.7 cm (5' 8 ) 11/04/2024 8:55 AM CDT Body Mass Index 37.25 11/04/2024 8:55 AM CDT Plan of Treatment Health Maintenance Due Date Last Done Comments DIABETES ANNUAL FOOT EXAM 1969 DIABETES MICROALBUMIN ANNUAL SCREEN 1969 LDL CHOLESTEROL ANNUAL 1969 DTAP/TDAP/TD VACCINES (1 - Tdap) 1970 FIT-DNA Q 3 years 1996 FIT/FOBT Q 1 year 1996 Flex Sig/CT Colonography Q 5 years 1996 ZOSTER VACCINE (1 of 2) 2001 RSV VACCINE (60+ or ) (1 - Risk 60-74 years 1-dose series) 2011 Abdominal Aortic Aneurysm (A AA) Screening 2016 COVID-19 Vaccine (3 - 2023-2 5 season) 2024 12/28/2020, 12/07/2020 DIABETES HBA1C Q 6 MONTHS 04/30/20252024, 08/08/2024, 06/06/2022 DIABETES ANNUAL RETINAL EXAM 05/09/2025 05/09/2024 COLORECTAL SCREENING 11/05/2031 11/04/2024, 11/05/19 Colorectal Cancer Screening 11/05/2031 PNEUMOCOCCAL VACCINE 50+ YEARS Completed 08/18/2019 , 04/19/2017 INFLUENZA VACCINE Completed 05/06/2024, , 04/19/2017, Additional history exists Medical Devices Implanted Type Area Athletic Team Physician Device Identifier Shelf Expiration Date Model / Serial / Lot Closure Perclose Proglide [id number] - [id number] Implanted:Qty : 1 on 10/31/2024 by Mario Chaidez MD at [facility] Closure Device Right: Leg KUNZ- VASC DEVICE [id number] 08/05/2026 [id number] / / [id number] Procedures Procedure Name Priority Date/Time Associated Diagnosis Comments TELEMETRY REPORT 11/04/2024 1:34 PM CDT TELEMETRY REPORT 11/04/2024 12:15 PM CDT TELEMETRY REPORT 11/04/2024 11:13 AM CDT TELEMETRY REPORT 11/04/2024 10:50 AM CDT TELEMETRY REPORT 11/04/2024 10:44 AM CDT TELEMETRY REPORT 11/04/2024 10:19 AM CDT TELEMETRY REPORT 11/04/2024 10:02 AM CDT COLONOSCOPY REPORT 11/04/2024 9:21 AM CDT PATHOLOGY Pathology 11/04/2024 9:15 AM CDT GI bleed COLONOSCOPY 11/04/2024 8:30 AM CDT GI bleed BASIC METABOLIC PANEL Routine 11/04/2024 3:41 AM CDT CBC WITHOUT DIFFERENTIAL Routine 025 3:41 AM CDT UPPER ENDOSCOPY REPORT 11:42 AM CDT TELEMETRY REPORT 11/03/2024 10:54 AM CDT PATHOLOGY Pathology 11/03/2024 10:50 AM CDT Acute gastrointestinal hemorrhage ESOPHAGOGASTRODUODENOSCOPY 11/03 10:30 AM CDT Acute gastrointestinal hemorrhage FERRITIN Routine 11/03/2024 9:55 AM CDT IRON, TIBC, AND PERCENT SATURATION Routine 11/03/2024 9:55 AM CDT BASIC METABOLIC PANEL Routine 11/03/2024 9:55 AM CDT CBC WITHOUT DIFFERENTIAL Routine 025 9:55 AM CDT PROTIME-INR Routine 11/03/2024 9:55 AM CDT CBC WITHOUT DIFFERENTIAL Routine 025 2:50 AM CDT PROTIME-INR Routine 11/02/2024 2:50 AM CDT CBC WITHOUT DIFFERENTIAL Routine 025 5:52 AM CDT PROTIME-INR Routine 11/01/2024 5:52 AM CDT TRANSFUSE PACKED RED BLOOD CELLS Routine 10/31/2024 4:46 PM CDT TELEMETRY REPORT 10/31/2024 3:56 PM CDT TELEMETRY REPORT 10/31/2024 3:52 PM CDT TELEMETRY REPORT 10/31/2024 3:36 PM CDT TELEMETRY REPORT 10/31/2024 3:19 PM CDT TELEMETRY REPORT 10/31/2024 3:19 PM CDT TELEMETRY REPORT 10/31/2024 3:19 PM CDT TELEMETRY REPORT 10/31/2024 3:19 PM CDT TYPE AND SCREEN Routine 10/31/2024 2:45 PM CDT PREPARE RED BLOOD CELLS Routine 11/01/19 2:32 PM CDT CBC WITHOUT DIFFERENTIAL Routine 025 1:36 PM CDT LEFT HEART CATH WITH GRAFTS Routine 10/05 9:43 AM CDT Elevated troponin Chest pain, unspecified type Dyspnea, unspecified type Coronary artery disease of bypass graft of [place] heart with stable angina pectoris Hx of CABG PROTIME-INR Routine 10/31/2024 2:26 AM CDT PROTIME-INR Stat 10/30/2024 7:33 PM CDT CBC WITHOUT DIFFERENTIAL Routine 025 10:28 AM CDT COMPREHENSIVE METABOLIC PANEL Routine 10:28 AM CDT PROTIME-INR Routine 10/30/2024 1:50 AM CDT UNFRACTIONATED HEPARIN ACTIVITY Routine 10/29/2024 2:45 PM CDT CBC WITHOUT DIFFERENTIAL Routine 025 2:45 PM CDT EXTRA TUBE (GREEN) Routine 10/29/2024 10:07 AM CDT EXTRA TUBE Routine 10/29/2024 10:07 AM CDT EXTRA TUBE (LAV) Routine 10/29/2024 10:07 AM CDT EXTRA TUBE Routine 10/29/2024 10:07 AM CDT PROTIME-INR Stat 10/29/2024 10:06 AM CDT POC GLUCOSE Routine 10/29/2024 7:23 AM CDT CTA CHEST ABD PELVIS W WO CONTRAST Stat 10/28/2024 7:56 PM CDT TROPONIN 6 HR, 5TH GEN Timed Study 5:15 PM CDT EKG 12-LEAD Stat 10/28/2024 5:09 PM CDT ECHOCARDIOGRAM W/ CONTRAST AGENT Routine 10/28/2024 2:49 PM CDT LIPASE Stat 10/28/2024 11:59 AM CDT HEMOGLOBIN A1C Stat 10/28/2024 11:59 AM CDT TSH REFLEXIVE Stat 10/28/2024 11:59 AM CDT TROPONIN 2 HR, 5TH GEN Timed Study 11:59 AM CDT XR CHEST PA OR AP 1 VW Stat 10:07 AM CDT PROTIME-INR Stat 10/28/2024 9:20 AM CDT BRAIN NATRIURETIC PEPTIDE, BNP OR PROBNP Stat 10/28/2024 9:20 AM CDT EXTRA TUBE (BLUE) Stat 10/28/2024 9:20 AM CDT EXTRA TUBE Stat 10/28/2024 9:20 AM CDT COMPREHENSIVE METABOLIC PANEL Stat 9:20 AM CDT CBC WITH DIFFERENTIAL Stat 10/28/2024 9:20 AM CDT TROPONIN BASELINE, 5TH GEN Stat 10/28 9:20 AM CDT EKG 12-LEAD Stat 10/28/2024 9:13 AM CDT CRITICAL CARE Routine 10/28/2024 9:04 AM CDT from Last 3 Months Results * TELEMETRY REPORT (11/04/2024 1:34 PM CDT) Only the most recent of15 resultswithin the time period is included. us Provider Scanning ECG ORDERABLES Final Result * COLONOSCOPY REPORT (11/04/2024 9:21 AM CDT) Narrative Procedure Note Abhilash Cooley MD - 11/04/2024 9:21 AM CDT [facility] Endoscopy Patient Name: Nila Thomas Procedure Date: 11/04/2024 Date of : 1950 Attending MD: Abhilash Cooley MD, Procedure: Colonoscopy Indications: Iron deficiency anemia Providers: Abhilash Cooley MD Referring MD: Mario Carroll MD Medicines: Monitored Anesthesia Care Complications: No immediate complications. Procedure: Informed consent was obtained for the procedure, including moderate sedation after risks were discussed. Based on the pre-procedure assessment, including review of the patient's medical history, medications, allergies, and review of systems, the patient was deemed to be an appropriate candidate for sedation. A timeout was performed. Continuous ECG monitoring, pulse oximetry, blood pressure monitoring, and direct observation were performed. The Colonoscope was introduced through the anus and advanced to the terminal ileum. The colonoscopy was performed without difficulty. The patient tolerated the procedure well. The quality of the bowel preparation was evaluated using the BBPS ([place] Bowel Preparation Scale) with scores of: Right Colon = 3, Transverse Colon = 3 and Left Colon = 3 (entire mucosa seen well with no residual staining, small fragments of stool or opaque liquid). The total BBPS score equals 9. Findings: The perianal and digital rectal examinations were normal. The terminal ileum appeared normal. A 4 mm polyp was found in the sigmoid colon. The polyp was sessile. The polyp was removed with a cold snare. Resection and retrieval were complete. Non-bleeding internal hemorrhoids were found during retroflexion. The hemorrhoids were small. Impression: - The examined portion of the ileum was normal. - One 4 mm polyp in the sigmoid colon, removed with a cold snare. Resected and retrieved. - Non-bleeding internal hemorrhoids. - No finding to explain amemia. Recommendation: - Await pathology results. - Obtain outpatient capsule to complete workup (we will arrange on discharge) - Ok to advance to cardiac diet - Ok to restart eliquis from GI perspective - Repeat colonoscopy in 7 years for surveillance. - The GI service will sign off. Please call with questions. Procedure Code(s): --- Professional --- 87568, Colonoscopy, flexible; with removal of tumor(s), polyp(s), or other lesion(s) by snare technique CPT copyright 2020 [employer]. All rights reserved. The codes documented in this report are preliminary and upon weaving inspector review may be revised to meet current compliance requirements. Abhilash Cooley MD 11/04/2024 9:21:39 AM This report has been signed electronically. Number of Addenda: [phone] [id number] [place] [address] Abhilash Cooley MD GI PROCEDURE ORDERABLES Final Re sult * PATHOLOGY (11/04/2024 9:15 AM CDT) Only the most recent of2 resultswithin the time period is included. CASE REPORT Surgical Pathology Report Case: [id number] Authorizing Provider: Abhilash Cooley MD Collected: 11/04/2024 09:15 AM Ordering Location: [facility] Received: 11/04/2024 11:45 AM Endoscopy Services Pathologist: Lakeshia Funes MD Specimen: Colon, sigmoid, Polyp 11/06/2024 12:03 PM CDT [facility] FINAL DIAGNOSIS Colon, sigmoid, biopsy - Tubular adenoma 11/06/2024 12:03 PM CDT [facility] at 1202 CDT GROSS DESCRIPTION A. Received in formalin labeled with the patient's name and sigmoid colon polyp is a kendall-pink tissue fragment measuring 0.8 cm in greatest dimension. The specimen is entirely submitted as A1. 11/06/2024 12:03 PM CDT [facility] MICROSCOPIC DESCRIPTION Microscopic examination substantiates the diagnosis. 11/06/2024 12:03 PM CDT [facility] OPERATIVE PROCEDURE 1: COLONOSCOPY 11/06/2024 12:03 PM CDT [facility] CLINICAL INFORMATION K92.2-GI bleed 11/06/2024 12:03 PM CDT [facility] COMMENT Immunohistochemical stains were performed, if any, and interpreted at [facility] ([facility]) Laboratory with appropriately staining controls. This test was developed and its performance characteristics determined by [facility]. It has not been cleared or approved by the US Food and Drug Administration. The FDA does not require this test to go through premarket FDA review. This test is used for clinical purposes, and should not be regarded as investigational or for research. This lab is certified under CLIA to perform high complexity testing. Estrogen and progesterone receptor staining has not been validated in our lab on decalcified tissue; decalcification may decrease immunoreactivity for these and other antigens. 11/06/2024 12:03 PM CDT [facility] Tissue SIGMOID COLON STRUCTURE / Unknown Collection / Unknown 11/04/2024 9:15 AM CDT 11/04/2024 11:45 AM CDT Abhilash Cooley MD PATHOLOGY/CYTOLOGY ORDERABLES Fi nal Result [facility] CLIA# [id number] [place] [address] * (ABNORMAL) CBC WITHOUT DIFFERENTIAL (11/04/2024 3:41 AM CDT) Only the most recent of7 resultswithin the time period is included. WBC 11.8(H) 4.0 - 9.8 K/uL 11/04/2024 3:57 AM CDT [facility] NRBCS 1 % 11/04/2024 3:57 AM CDT [facility] RBC 2.95(L) 4.50 - 5.40 M/uL 11/04/2024 3:57 AM CDT [facility] HEMOGLOBIN 8.2(L) 13.6 - 16.5 g/dL 11/04/2024 3:57 AM CDT [facility] HEMATOCRIT 26.5(L) 40.0 - 48.0 % 11/04/2024 3:57 AM CDT [facility] MCV 89.8 82.0 - 99.0 fL 11/04/2024 3:57 AM CDT [facility] MCH 27.8 27.2 - 32.6 pg 11/04/2024 3:57 AM CDT [facility] MCHC 30.9(L) 31.5 - 35.5 g/dL 11/04/2024 3:57 AM CDT [facility] PLATELETS 243 140 - 350 K/uL 11/04/2024 3:57 AM CDT [facility] MPV 9.3 9.3 - 12.4 fL 11/04/2024 3:57 AM CDT [facility] RDW 17.1(H) 11.5 - 14.5 % 11/04/2024 3:57 AM CDT [facility] RDW-STDEV 54.4(H) 37.1 - 48.7 fL 11/04/2024 3:57 AM CDT [facility] [employer] [facility] Blood Venipuncture / Unknown 11/04/2024 3:41 AM CDT 11/04/2024 3:55 AM CDT Joel Gee MD HEMATOLOGY ORDERABLES Final Resu lt [facility] CLIA# [id number] [place] [address] * (ABNORMAL) BASIC METABOLIC PANEL (11/04/2024 3:41 AM CDT) Only the most recent of2 resultswithin the time period is included. SODIUM 141 136 - 145 mmol/L 11/04/2024 4:18 AM CDT [facility] POTASSIUM 3.6 3.4 - 5.1 mmol/L 11/04/2024 4:18 AM CDT [facility] CHLORIDE 103 98 - 107 mmol/L 11/04/2024 4:18 AM CDT [facility] CO2 24 22 - 29 mmol/L 11/04/2024 4:18 AM CDT [facility] CALCIUM 8.7 8.6 - 10.4 mg/dL 11/04/2024 4:18 AM CDT [facility] BUN 14 6 - 20 mg/dL 11/04/2024 4:18 AM T [facility] CREATININE 1.22(H) 0.67 - 1.17 mg/dL 11/04/2024 4:18 AM T [facility] Comment:The GFR result is no t clinically significant on patients <18 or >70 years of age. GLUCOSE 113(H) 74 - 99 mg/dL 11/04/2024 4:18 AM T [facility] GFR >60 mL/min/1.7 3 sq meter 11/04/2024 4:18 AM T [facility] Comment:eGFR calculated with 2020 CKD-EPI equation. Vegetarian diet, extremely high or low muscle mass, and may affect results. Cystatin C with Glomerular Filtration Rate is a suitable alternative for these patients. ANION GAP 14 8 - 16 mmol/L 11/04/2024 4:18 AM T [facility] Blood Venipuncture / Unknown 11/04/2024 3:41 AM CDT 11/04/2024 3:48 AM CDT us Joel Gee MD CHEMISTRY ORDERABLES Final Resul t [facility] CLIA# [id number] [place] [address] * UPPER ENDOSCOPY REPORT (11/03/2024 11:42 AM CDT) Narrative Procedure Note Alma Coelho MD - 11/03/2024 11:42 AM CDT [facility] Endoscopy Patient Name: Nila Thomas Procedure Date: 11/03/2024 Date of : 1950 Attending MD: Alma Coelho MD, Procedure: Upper GI endoscopy Indications: Acute post hemorrhagic anemia, Melena Patient Profile: Refer to note in patient chart for documentation of history and physical. Providers: Alma Coelho MD Referring MD: Medicines: Monitored Anesthesia Care Complications: No immediate complications. Procedure: Pre-Anesthesia Assessment: - Prior to the procedure, a History and Physical was performed, and patient medications, allergies and sensitivities were reviewed. The patient's tolerance of previous anesthesia was reviewed. - The risks and benefits of the procedure and the sedation options and risks were discussed with the patient. All questions were answered and informed consent was obtained. - ASA and MP per anesthesia records. See the other procedure note for documentation of the pre-procedure assessment Informed consent was obtained for the procedure, including moderate sedation after risks were discussed. Based on the pre-procedure assessment, including review of the patient's medical history, medications, allergies, and review of systems, the patient was deemed to be an appropriate candidate for sedation. A timeout was performed. Continuous ECG monitoring, pulse oximetry, blood pressure monitoring, and direct observation were performed. The Endoscope was introduced through the mouth, and advanced to the second part of duodenum. The upper GI endoscopy was accomplished without difficulty. The patient tolerated the procedure well. Findings: The examined esophagus was normal. Four localized medium erosions with no bleeding and no stigmata of recent bleeding were found in the gastric body and in the gastric antrum. Biopsies were taken with a cold forceps for histology. The examined duodenum was normal. The cardia and gastric fundus were normal on retroflexion. Impression: - Normal esophagus. - Erosive gastropathy with no bleeding and no stigmata of recent bleeding. Biopsied. - Normal examined duodenum. Recommendation: - Await pathology results. - Use Protonix (pantoprazole) 40 mg PO daily for 2 weeks. - Perform a colonoscopy tomorrow. - The findings and recommendations were discussed with the patient. Procedure Code(s): --- Professional --- 70510, Esophagogastroduodenoscopy, flexible, transoral; with biopsy, single or multiple CPT copyright 2020 [employer]. All rights reserved. The codes documented in this report are preliminary and upon weaving inspector review may be revised to meet current compliance requirements. Attending Participation: I personally performed the entire procedure. Alma Coelho MD 11/03/2024 10:58:17 AM This report has been signed electronically. Number of Addenda: [phone] [id number] [place] [address] Alma Coelho MD GI PROCEDURE ORDERABLES Edite d Result - Final * (ABNORMAL) IRON, TIBC, AND PERCENT SATURATION (11/03/2024 9:55 AM CDT) IRON 24(L) 59 - 158 ug/dL 11/03/2024 11:43 AM CDT [facility] TIBC 321 261 - 462 ug/dL 11/03/2024 11:43 AM CDT [facility] IRON % SATURATION 7(L) 20 - 55 % 11/03/2024 11:43 AM CDT [facility] TRANSFERRIN 253 200 - 360 mg/dL 11/03/2024 11:43 AM CDT [facility] Blood Venipuncture / Unknown 11/03/2024 9:55 AM CDT 11/03/2024 10:05 AM CDT Joel Gee MD CHEMISTRY ORDERABLES Final Resul t [facility] CLIA# [id number] [place], [place] [id number] * PROTIME-INR (11/03/2024 9:55 AM CDT) Only the most recent of8 resultswithin the time period is included. PROTIME 13.5 11.5 - 14.7 Seconds 11/03/2024 10:31 AM CDT [facility] INR 1.0 0.9 - 1.1 11/03/2024 10:31 AM CDT [facility] Blood Venipuncture / Unknown 11/03/2024 9:55 AM CDT 11/03/2024 10:05 AM CDT Ramiro Pitt MD HEMATOLOGY ORDERABLES F inal Result Performing Organization Address City/[facility]/ZIP Co de Phone Number [facility]# [id number] [place] [address] * FERRITIN (11/03/2024 9:55 AM CDT) Pathologist [facility] FERRITIN 51.7 30.0 - 400.0 ng/mL 11/03/2024 11:43 AM CDT [facility] Blood Venipuncture / Unknown 11/03/2024 9:55 AM CDT 11/03/2024 10:05 AM CDT Joel Gee MD CHEMISTRY ORDERABLES Final Resul t [facility]# [id number] [place] [address] * TRANSFUSE RED BLOOD CELLS (10/31/2024 7:20 PM CDT) Kali Churchill MD BLOOD TRANSFUSION ORDERABLES Fin al Result * TYPE AND SCREEN (10/31/2024 2:45 PM CDT) ABO GROUP O 10/31/2024 3:44 PM CDT [facility] RH (D) TYPE Positive 10/31/2024 3:44 PM CDT [facility] ANTIBODY SCREEN Negative 10/31/2024 3:44 PM CDT [facility] Blood Collection / Unknown 10/31/2024 2:45 PM CDT 10/31/2024 2:48 PM CDT Kali Churchill MD BLOOD BANK ORDERABLES Edited Res ult - Final [facility] CLIA# [id number] [place] [address] * PREPARE RED BLOOD CELLS (10/31/2024 2:32 PM CDT) COMPONENT TYPE [id number] [facility] COMPONENT IDENTIFICATION [id number] [facility] - [facility] UNIT ABO O [facility] - [facility] UN[facility] RH POS [facility] CROSSMATCH Compatible [facility] COMPONENT STATUS Transfused ME [facility]ORY SERVICES - [facility] COMPONENT EXPIRATION DATE/TIME [id number] [facility] COMPONENT CODING SYSTEM 5100 [facility] VOLUME, BLOOD PRODUCT 350 [facility] Other, specify 10/31/2024 2: 32 PM CDT Kali Churchill MD LAB TRANSFUSION ORDERABLES Edite d Result - Final [facility] [employer] [facility] CLIA# [id number] [place] [address] * LEFT HEART CATH WITH GRAFTS (10/31/2024 9:43 AM CDT) 10/31/2024 8:25 AM CDT Narrative Mario Chaidez MD - 10/31/2024 10:06 AM CDT [facility] Post left heart cath with grafts note History: 74-year-old gentleman with prior CABG. Then most recently August 2024 complex intervention to the distal RCA extending into the PDA and PL marginal with bifurcating stent. History of atrial fibrillation. Known aortic stenosis moderately severe. Comes into the emergency room with dyspnea and chest discomfort. Hemoglobin dropped from 10.4 down to 8.3 range. GI consulted. Had been on Plavix and Coumadin. 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 1% Xylocaine used local anesthetic. 2 mg of Versed given consultation. During the case with arm pains he was given 50 mcg of fentanyl IV push. With the [email or web address] ultrasound machine the common femoral artery was then divided accessed with micropuncture and 5 Belarusian sheath placed without difficulty. Right groin angiography performed. At this point JL 4 diagnostic 5 Belarusian catheter introduced engage the left main orthogonal views obtained. Through exchange technique JR4 diagnostic 5 Belarusian catheter then introduced brief attempt across aortic valve without success. Wire removed catheter flushed. Catheter redirected initially accessed the radial graft to the circumflex. In identify the right vein graft is noted to be 100 occluded. Did not find the diagonal graft did not truly search for it. Catheter was then redirected engage the right coronary artery with orthogonal views obtained. Finally catheter was repositioned into the left subclavian and then selectively engaged into the KIRA graft again orthogonal views obtained. Satisfied with the findings with [id number] technique catheter retrieved this point sheath pulled Perclose deployed hemostasis obtained. Patient of the Shift Boss pain-free having suffered no ill effects from procedure. Access: Radial artery Coronary angiography: (Right dominant) Left main-patent .... Left anterior descending-proximal heavily calcified with hazy 75% stenosis. Grafted distally. There is a small caliber proximal diagonal has a high-grade 85% stenosis described historically it looks like it was grafted. All this described previously..... Circumflex artery-circumflex is essentially 100% occluded proximally and grafted distally.... Right coronary artery -ostial calcified plaque but widely patent large caliber vessel heavily calcified with moderate plaquing distal stent extending into the connecting segment and the PDA all widely patent with just some mild calcific plaque post stent deployment the PDA and PL marginal branch downstream no progressive disease Left ventricle- Not crossed Interventional Results: The KIRA graft to the LAD excellent shape widely patent good antegrade and retrograde flow. The radial graft to the circumflex widely patent good antegrade flow. Previously grafted diagonal and RCA known to be 100% occluded per reports Complications: None Conclusion Left ventricle not crossed 2. Hemodynamics ... Normal Ao hemodynamics 3. Coronary angiography.... 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 D1 small vessel 85% proximal stenosis. ... LAD grafted distally c) CIRC - 100% proximal occlusion ... Grafted distally d) RCA - large caliber calcific with moderate plaque burden. Recent bifurcating stents patent 4. Graft study demonstrated 2 of 4 grafts patent widely patent good distal anastomosis a) SANTA[place]UZ --> LAD: widely patent good distal anastomosis b) radial--> Circ widely patent good distal anastomosis c) SVG --> D1: None 100% occluded d) SVG --> RCA: Known 100% occlusion Recommendations: Cardiac catheterization reassuring. Stable CAD pattern since 08/2024. -Specifically the bifurcating stent RCA widely patent. -Known residual disease in the small proximal diagonal ... Small caliber would not consider intervention at this time. Likely old appearing finding Thank you, Mario Chaidez MD [facility] Mario Chaidez MD [facility] CATH ORDERABLES Final Result * (ABNORMAL) COMPREHENSIVE METABOLIC PANEL (10/30/2024 10:28 AM CDT) Only the most recent of2 resultswithin the time period is included. [facility] SODIUM 133(L) 136 - 145 mmol/L 10/30/2024 11:42 AM T [facility] POTASSIUM 4.6 3.4 - 5.1 mmol/L 10/30/2024 11:42 AM T [facility] Comment:Slightly hemolyzed. Result may be falsely elevated. CHLORIDE 104 98 - 107 mmol/L 10/30/2024 11:42 AM T [facility] CO2 15(L) 22 - 29 mmol/L 10/30/2024 11:42 AM [facility] CALCIUM 9.1 8.6 - 10.4 mg/dL 10/30/2024 11:42 AM [facility] BUN 35(H) 6 - 20 mg/dL 10/30/2024 11:42 AM [facility] CREATININE 1.11 0.67 - 1.17 mg/dL 10/30/2024 11:42 AM [facility] Comment:The GFR result is no t clinically significant on patients <18 or >70 years of age. GLUCOSE 110(H) 74 - 99 mg/dL 10/30/2024 11:42 AM [facility] TOTAL PROTEIN 6.2(L) 6.3 - 8.7 g/dL 10/30/2024 11:42 AM [facility] ALBUMIN 3.2(L) 3.5 - 5.2 g/dL 10/30/2024 11:42 AM [facility] BILIRUBIN TOTAL 0.3 0.2 - 1.1 mg/dL 10/30/2024 11:42 AM [facility] ALKALINE PHOSPHATASE 44 40 - 150 U/L 10/30/2024 11:42 AM [facility] AST 30 0 - 41 U/L 10/30/2024 11:42 AM [facility] Comment:Hemolysis present. R esult may be falsely elevated. ALT 10 0 - 41 U/L 10/30/2024 11:42 AM [facility] GFR >60 mL/min/1.7 3 sq meter 10/30/2024 11:42 AM [facility] Comment:eGFR calculated with 2020 CKD-EPI equation. Vegetarian diet, extremely high or low muscle mass, and may affect results. Cystatin C with Glomerular Filtration Rate is a suitable alternative for these patients. ANION GAP 14 8 - 16 mmol/L 10/30/2024 11:42 AM [facility] Blood Venipuncture / Unknown 10/30/2024 10:28 AM CDT 10/30/2024 11:09 AM CDT Kali Churchill MD CHEMISTRY ORDERABLES Final Resul t Performing Organization Address [facility] de Phone Number [id number] [address] [place] [address] * UNFRACTIONATED HEPARIN MONITORING (10/29/2024 2:45 PM CDT) ANTI-XA UNFRAC HEP <0.10 See Interpreta tion. IU/mL 10/29/2024 3:37 PM CDT [facility] [employer] [facility] Blood Venipuncture / Unknown 10/29/2024 2:45 PM CDT 10/29/2024 3:09 PM CDT Narrative [facility] [employer] [facility] - 10/29/2024 3:37 PM CDT Unfractionated Heparin Therapeutic Range: 0.30-0.70 IU/ml Refer to pharmacy adult heparin protocol for further recommendation. The reference range for this test is specific to the anticoagulant and is not appropriate for monitoring patients on a DOAC protocol. Kali Churchill MD HEMATOLOGY ORDERABLES Final Resu lt Performing Organization Address [facility] de Phone Number [facility] [employer] [facility] [id number] [place] [address] * EXTRA TUBE (GREEN) (10/29/2024 10:07 AM CDT) Blood Venipuncture / Unknown 10/29/2024 10:07 AM CDT 10/29/2024 1:22 PM CDT Kali Churchill MD CHEMISTRY ORDERABLES Final Resul t Performing Organization Address [facility] Co de Phone Number [facility] [employer] [facility]# [id number] [address] [place] [address] * EXTRA TUBE (LAV) (10/29/2024 10:07 AM CDT) Blood Venipuncture / Unknown 10/29/2024 10:07 AM CDT 10/29/2024 1:22 PM CDT Kali Churchill MD HEMATOLOGY ORDERABLES Final Resu lt Performing Organization Address City/[facility]/ZIP Co de Phone Number [facility] LABORAT[facility] SERVICES [facility] CLIA# [id number] [place] [address] * (ABNORMAL) POC GLUCOSE (10/29/2024 7:23 AM CDT) GLUCOSE POC 132(H) 74 - 99 mg/dL 10/29/2024 7:23 AM CDT [facility] POINT OF CARE SPECIMEN SOURCE, GLUCOSE POC Whole Blood 10/29/2024 7:23 AM CDT [facility] POINT OF CARE Blood, whole 10/29/2024 7:23 AM CDT 10/29/2024 7:30 AM CDT Kali Churchill MD POINT OF CARE TESTING Final Resu lt Performing Organization Address [facility] Co de Phone Number [facility] POINT OF CARE CLIA # [id number] [place] [address] * CTA CHEST ABD PELVIS W AND/OR WO CONTRAST (10/28/2024 7:56 PM CDT) Anatomical Region Laterality Modality Chest, Abdomen, Pelvis Computed Tomography 10/28/2024 7:26 PM CDT Impressions 10/28/2024 8:07 PM CDT IMPRESSION: No evidence of dissection. 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 Renal artery stenosis may be also be present. Right renal cyst Spondylosis Laminectomies and lumbar fusion Prostate gland enlargement Right lung base atelectasis The examination was performed with the adjustment of mA according to the patient size and/or the use of Iterative Reconstruction Technique. DICTATION LOCATION: Location - [facility] Narrative 10/28/2024 8:07 PM CDT CTA CHEST, ABDOMEN AND PELVIS WITH AND WITHOUT IV CONTRAST WITH RECONSTRUCTIONS DATE: 10/28/2024 7:56 PM HISTORY: Acute aortic syndrome (AAS) suspected Chest pain, unspecified type COMPARISON: Chest radiograph from same day FINDINGS: Computed tomographic angiography of the chest, abdomen and pelvis is performed using post contrast 2.5 mm axial collimation. 80 cc of Isovue-370. 3D MIP reconstructed images were obtained. Precontrast images show median sternotomy. Bypass grafting is been performed. There is no intramural hematoma. Coronary artery calcification and aortic valvular calcification is present. The abdomen shows mesenteric artery calcification. There is aortoiliac vascular calcification. Prostate gland is enlarged and contains calcifications. CT with contrast does not show any large pulmonary embolus or dissection. No hilar or mediastinal mass is seen. There is a cavitary left upper lobe nodule measuring 2.4 cm. Some atelectasis is present in the right lung base and there is elevation of the right hemidiaphragm. The upper abdomen shows no liver or spleen lesion. There is no adrenal or pancreas lesion. A right renal cyst is present. There is no retroperitoneal mass. Renal artery calcification is present. 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 Lumbar fusion is been performed. There are lumbar laminectomies. Spondylosis is present. The pelvis shows prostate gland enlargement. No inguinal or pelvic mass is seen. INCIDENTAL FINDINGS: None. Arie Perez MD CT ORDERABLES Edited Result - Final * (ABNORMAL) TROPONIN 6 HR, 5TH GEN (10/28/2024 5:15 PM CDT) TROPONIN T, 6 HR 5TH GEN 63(H) <=15 ng/L 10/28/2024 6:22 PM CDT [facility] [employer] [facility] DELTA 6HR TROPONIN T 39(HH) See Interp. 10/28/2024 6:22 PM CDT [facility] [employer] [facility] Blood Venipuncture / Unknown 10/28/2024 5:15 PM CDT 10/28/2024 5:42 PM CDT Narrative [facility] [employer] [facility] - 10/28/2024 6:22 PM CDT Troponin elevated. Delta significant change. Delay in collection of timed specimen beyond recommended collection interval. Results must be interpreted in clinical context. us Arie Perez MD CHEMISTRY ORDERABLES Final Resul t [facility] SERVICES - [facility] CLIA# [id number] [address] [place] [address] * EKG 12-LEAD (10/28/2024 5:09 PM CDT) Only the most recent of2 resultswithin the time period is included. 10/28/2024 5:09 PM CDT Narrative INTERFACE SYSTEM - 10/28/2024 6:05 [place] [address] Test Date: 2024-10-28 Pat Name: NILA THOMAS Department: 98 Room: [address] [place] [address] Gender: Male Trial Management Associate: [id number] : 1950 Requested By: PAULINO GRANDE Order Number: [id number] Reading : Mario Chaidez Measurements Intervals [place] Rate: 100 P: 80 MO: 188 QRS: 44 QRSD: 84 T: 10 QT: 344 QTc: 443 Interpretive Statements Normal sinus rhythm rsr' consider RV conduction delay, normal varient Nonspecific ST abnormality Abnormal ECG Compared to ECG 10/28/2024 09:13:25 no significant changes Electronically Signed On 10-28-2024 18:05:51 CDT by Mario Chaidez Procedure Note Mario Chaidez MD - 10/28/2024 [place] [address] Test Date: 2024-10-28 Pat Name: NILA THOMAS Department: 98 Room: [address] [place] [address] Gender: Male Trial Management Associate: [id number] : 1950 Requested By: PAULINO GRANDE Order Number: [id number] Reading : Mario Chaidez Measurements Intervals [place] Rate: 100 P: 80 MO: 188 QRS: 44 QRSD: 84 T: 10 QT: 344 QTc: 443 Interpretive Statements Normal sinus rhythm rsr' consider RV conduction delay, normal varient Nonspecific ST abnormality Abnormal ECG Compared to ECG 10/28/2024 09:13:25 no significant changes Electronically Signed On 10-28-2024 18:05:51 CDT by Mario Chaidez us Arie Perez MD ECG ORDERABLES Final Result INTERFACE SYSTEM Refer to clinic/hospital department * ECHOCARDIOGRAM W/ CONTRAST AGENT (10/28/2024 2:49 PM CDT) EJECTION FRACTION 70 INTERFACE SYSTEM 10/28/2024 1:27 PM CDT Narrative INTERFACE SYSTEM - 10/28/2024 3:25 PM CDT Transthoracic Echocardiogram Patient: Nila Thomas Study ID: [id number] Gender: M : 1950 Age: 74 Race: [facility] Height 172.7cm Study Date: 10/28/2024 Weight: 111.1kg Access. #: [id number] BP: 117 / 80 *Referring Physician:Becky Phelps *Ordering Physician:* Becky Hutson *Quality Assurance Coordinator:* Baylee Farris TOMMY international account representative: Nurse: Indications: Dyspnea. History: PMH: Atrial Fibrillation. COPD. CAD. HLD. Risk factors: Hypertension. Diabetes mellitus. STUDY CONCLUSIONS: SUMMARY: - Procedure narrative: A transthoracic echocardiogram was performed. Image quality was technically difficult, The study was technically limited due to poor acoustic window availability. Scanning was performed from the parasternal, apical, and subcostal acoustic windows. Intravenous contrast (Definity) was administered to enhance endocardial border detection that was not seen in two consecutive segments due to suboptimal baseline images and opacify the LV. - Left ventricle: The cavity size was normal. Wall thickness was increased increased in a pattern of mild to moderate LVH. Global systolic function is normal. For Epic reporting: the left ventricular ejection fraction is 70% . - Aortic valve: . The leaflets are moderately thickened and severely calcified. There was moderate to severe stenosis, nearer to severe. Mild regurgitation. The mean systolic gradient is 35mm Hg. The LVOT to aortic valve VTI ratio is 0.3. - Left atrium: The atrium is normal in size. - Right ventricle: The cavity size is normal. Systolic function is normal. - Pulmonary arteries: The peak systolic pressure is 12mm Hg. Cardiac Anatomy: LEFT VENTRICLE: The cavity size was normal. Wall thickness was increased increased in a pattern of mild to moderate LVH. Global systolic function is normal. For Epic reporting: the left ventricular ejection fraction is 70% . AORTIC VALVE: Not well visualized. . The leaflets are moderately thickened and severely calcified. There was moderate to severe stenosis, nearer to severe. Mild regurgitation. The mean systolic gradient is 35mm Hg. The peak systolic gradient is 59mm Hg. The LVOT to aortic valve VTI ratio is 0.3. The valve area is 1.1cm^2. The ratio of LVOT to aortic valve peak velocity is 0.26. AORTA: Aortic root: The root is normal-sized. MITRAL VALVE: Structurally normal valve. No significant regurgitation. The mean diastolic gradient is 2mm Hg. The peak diastolic gradient is 5mm Hg. LEFT ATRIUM: The atrium is normal in size. RIGHT VENTRICLE: The cavity size is normal. Systolic function is normal. PULMONIC VALVE: Structurally normal valve. No significant regurgitation. TRICUSPID VALVE: Structurally normal valve. No significant regurgitation. RIGHT ATRIUM: The atrium was normal in size. SYSTEMIC VEINS: Inferior vena cava: The IVC is normal-sized. PERICARDIUM: There is no pericardial effusion. Measurements Left ventricle Value Ref IVS, ED, LAX (H) 1.2 cm 0.6 - 1.0 CHELI, LAX (L) 3.2 cm 4.2 - 5.8 CHELI/bsa, LAX (L) 1.4 cm/m^2 2.2 - 3.0 IVS, ED (H) 1.2 cm 0.6 - 1.0 PW, ED (N) 0.9 cm 0.6 - 1.0 EDV, 2-p (N) 69 ml 62 - 150 ESV, 2-p (N) 21 ml 21 - 61 EF, 2-p (N) 69 % 52 - 72 SV, 2-p 48 ml --------- SV/bsa, 2-p 21.4 ml/m^2 --------- E', med keven, TDI (L) 5.8 cm/sec >=7.0 E/e', med keven, TDI 21 --------- LVOT Value Ref Diam, S 2.2 cm --------- Area 3.8 cm^2 --------- Peak dio, S 1.01 m/sec --------- VTI, S 16.6 cm --------- Right ventricle Value Ref CHEIL minor ax, A4C base (H) 5.8 cm 2.5 - 4.1 CHELI minor ax, A4C mid (H) 4.3 cm 1.9 - 3.5 CHELI major ax, A4C (N) 8.1 cm 5.9 - 8.3 TAPSE, MM (L) 1.0 cm >=1.7 Pressure, S 12 mm Hg --------- S' lateral (L) 8.8 cm/sec >=9.5 Left atrium Value Ref AP dim, ES (H) 4.5 cm 3.0 - 4.0 AP dim index, ES (N) 2.0 cm/m^2 1.5 - 2.3 SI dim, A4C 6.3 cm --------- Area ES, A4C (N) 18 cm^2 <=20 Area/bsa ES, A4C 7.94 cm^2/m^2 --------- LA/Ao root ratio 1.36 --------- Right atrium Value Ref SI dim, ES, A4C (N) 5.2 cm 3.4 - 5.3 SI dim/bsa, ES, A4C (N) 2.3 cm/m^2 1.8 - 3.0 Area, ES, A4C (N) 16 cm^2 10 - 18 Vol, ES, 1-p A4C 39 ml --------- Vol/bsa, ES, 1-p A4C (N) 17 ml/m^2 11 - 39 Aortic valve Value Ref Peak v, S 3.8 m/sec --------- Mean v, S 2.81 m/sec --------- VTI, S 55.9 cm --------- Mean grad, S 35 mm Hg --------- Peak grad, S 59 mm Hg --------- LVOT/AV, VTI ratio 0.3 --------- OLVIN, VTI 1.1 cm^2 --------- OLVIN/bsa, VTI 0.51 cm^2/m^2 --------- LVOT/AV, Vpeak ratio 0.26 --------- OLVIN, Vmax 1.0 cm^2 --------- OLVIN/bsa, Vmax 0.44 cm^2/m^2 --------- Mitral valve Value Ref Mean v, D 0.66 m/sec --------- Peak E 1.19 m/sec --------- Decel time 161 ms --------- Mean grad, D 2 mm Hg --------- Peak grad, D 5 mm Hg --------- A-VTI 18.4 cm --------- Pulmonic valve Value Ref Peak v, S 1.13 m/sec --------- Peak grad, S 5 mm Hg --------- Tricuspid valve Value Ref Peak E 0.6 m/sec --------- Aortic root Value Ref Root diam, 3.3 cm --------- Pulmonary artery Value Ref Pressure, S 12 mm Hg --------- Systemic veins Value Ref Estimated RA pressure 5 mm Hg --------- Legend: (L) and (H) solomon values outside specified reference range. (N) candelaria values inside specified reference range. Procedure data: [facility] No prior study was available for comparison. Study status: Routine. Procedure information: A transthoracic echocardiogram was performed. Image quality was technically difficult, The study was technically limited due to poor acoustic window availability. Scanning was performed from the parasternal, apical, and subcostal acoustic windows. Intravenous contrast (Definity) was administered to enhance endocardial border detection that was not seen in two consecutive segments due to suboptimal baseline images and opacify the LV. Transthoracic echocardiogram. Complete 2D, complete spectral Doppler, and color Doppler. Birthdate: Patient birthdate: 1950. Age: Patient is 74year(s) old. Sex: gender: male. Height: 172.7cm. 68in. Weight: 111.1kg. 245lb. Body mass index: 37.3kg/m^2. Body surface area: 2.23m^2. Heart rate: 97bpm. Blood pressure: 117/80 Patient status: Inpatient. Study date: Study date: 10/28/2024. Study time: 01:27 PM. Location: Emergency department. Prepared and Electronically Authenticated Giacomo Jeffrey M.D. [id number] Procedure Note Giacomo Jeffrey MD - 10/28/2024 Transthoracic Echocardiogram Patient: Nila Thomas Study ID: [id number] Gender: M : 1950 Age: 74 Race: CAU Height 172.7cm Study Date: 10/28/2024 Weight: 111.1kg Access. #: [id number] BP: 117 / 80 *Referring Physician:Becky Phelps *Ordering Physician:Becky Phelps *Quality Assurance Coordinator:* Baylee Farris TOMMY international account representative: Nurse: Indications: Dyspnea. History: PMH: Atrial Fibrillation. COPD. CAD. HLD. Risk factors:Hypertension. Diabetes mellitus. STUDY CONCLUSIONS: SUMMARY: - Procedure narrative: A transthoracic echocardiogram was performed.Image quality was technically difficult, The study was technically limited dueto poor acoustic window availability. Scanning was performed from the parasternal, apical, and subcostal acoustic windows. Intravenouscontrast (Definity) was administered to enhance endocardial border detection thatwas not seen in two consecutive segments due to suboptimal baseline imagesand opacify the LV. - Left ventricle: The cavity size was normal. Wall thickness wasincreased increased in a pattern of mild to moderate LVH. Global systolic functionis normal. For Epic reporting: the left ventricular ejection fraction is70% . - Aortic valve: . The leaflets are moderately thickened and severely calcified. There was moderate to severe stenosis, nearer to severe.Mild regurgitation. The mean systolic gradient is 35mm Hg. The LVOT toaortic valve VTI ratio is 0.3. - Left atrium: The atrium is normal in size. - Right ventricle: The cavity size is normal. Systolic function isnormal. - Pulmonary arteries: The peak systolic pressure is 12mm Hg. Cardiac Anatomy: LEFT VENTRICLE: The cavity size was normal. Wall thickness wasincreased increased in a pattern of mild to moderate LVH. Global systolic functionis normal. For Epic reporting: the left ventricular ejection fraction is 70%. AORTIC VALVE: Not well visualized. . The leaflets are moderatelythickened and severely calcified. There was moderate to severe stenosis, nearer to severe. Mild regurgitation. The mean systolic gradient is 35mm Hg. Thepeak systolic gradient is 59mm Hg. The LVOT to aortic valve VTI ratio is 0.3.The valve area is 1.1cm^2. The ratio of LVOT to aortic valve peak velocityis 0.26. AORTA: Aortic root: The root is normal-sized. MITRAL VALVE: Structurally normal valve. No significantregurgitation. The mean diastolic gradient is 2mm Hg. The peak diastolic gradient is 5mmHg. LEFT ATRIUM: The atrium is normal in size. RIGHT VENTRICLE: The cavity size is normal. Systolic function isnormal. PULMONIC VALVE: Structurally normal valve. No significantregurgitation. TRICUSPID VALVE: Structurally normal valve. No significantregurgitation. RIGHT ATRIUM: The atrium was normal in size. SYSTEMIC VEINS: Inferior vena cava: The IVC is normal-sized. PERICARDIUM: There is no pericardial effusion. Measurements Left ventricle Value Ref IVS, ED, LAX (H) 1.2 cm 0.6 - 1.0 CHELI, LAX (L) 3.2 cm 4.2 - 5.8 CHELI/bsa, LAX (L) 1.4 cm/m^2 2.2 - 3.0 IVS, ED (H) 1.2 cm 0.6 - 1.0 PW, ED (N) 0.9 cm 0.6 - 1.0 EDV, 2-p (N) 69 ml 62 - 150 ESV, 2-p (N) 21 ml 21 - 61 EF, 2-p (N) 69 % 52 - 72 SV, 2-p 48 ml --------- SV/bsa, 2-p 21.4 ml/m^2 --------- E', med keven, TDI (L) 5.8 cm/sec >=7.0 E/e', med keven, TDI 21 --------- LVOT Value Ref Diam, S 2.2 cm --------- Area 3.8 cm^2 --------- Peak dio, S 1.01 m/sec --------- VTI, S 16.6 cm --------- Right ventricle Value Ref CHELI minor ax, A4C base (H) 5.8 cm 2.5 - 4.1 CHELI minor ax, A4C mid (H) 4.3 cm 1.9 - 3.5 CHELI major ax, A4C (N) 8.1 cm 5.9 - 8.3 TAPSE, MM (L) 1.0 cm >=1.7 Pressure, S 12 mm Hg --------- S' lateral (L) 8.8 cm/sec >=9.5 Left atrium Value Ref AP dim, ES (H) 4.5 cm 3.0 - 4.0 AP dim index, ES (N) 2.0 cm/m^2 1.5 - 2.3 SI dim, A4C 6.3 cm --------- Area ES, A4C (N) 18 cm^2 <=20 Area/bsa ES, A4C 7.94 cm^2/m^2 --------- LA/Ao root ratio 1.36 --------- Right atrium Value Ref SI dim, ES, A4C (N) 5.2 cm 3.4 - 5.3 SI dim/bsa, ES, A4C (N) 2.3 cm/m^2 1.8 - 3.0 Area, ES, A4C (N) 16 cm^2 10 - 18 Vol, ES, 1-p A4C 39 ml --------- Vol/bsa, ES, 1-p A4C (N) 17 ml/m^2 11 - 39 Aortic valve Value Ref Peak v, S 3.8 m/sec --------- Mean v, S 2.81 m/sec --------- VTI, S 55.9 cm --------- Mean grad, S 35 mm Hg --------- Peak grad, S 59 mm Hg --------- LVOT/AV, VTI ratio 0.3 --------- OLVIN, VTI 1.1 cm^2 --------- OLVIN/bsa, VTI 0.51 cm^2/m^2 --------- LVOT/AV, Vpeak ratio 0.26 --------- OLVIN, Vmax 1.0 cm^2 --------- OLVIN/bsa, Vmax 0.44 cm^2/m^2 --------- Mitral valve Value Ref Mean v, D 0.66 m/sec --------- Peak E 1.19 m/sec --------- Decel time 161 ms --------- Mean grad, D 2 mm Hg --------- Peak grad, D 5 mm Hg --------- A-VTI 18.4 cm --------- Pulmonic valve Value Ref Peak v, S 1.13 m/sec --------- Peak grad, S 5 mm Hg --------- Tricuspid valve Value Ref Peak E 0.6 m/sec --------- Aortic root Value Ref Root diam, 3.3 cm --------- Pulmonary artery Value Ref Pressure, S 12 mm Hg --------- Systemic veins Value Ref Estimated RA pressure 5 mm Hg --------- Legend: (L) and (H) solomon values outside specified reference range. (N) candelaria values inside specified reference range. Procedure data: [facility] No prior study was available for comparison. Studystatus: Routine. Procedure information: A transthoracic echocardiogram was performed. Image quality was technically difficult, The study wastechnically limited due to poor acoustic window availability. Scanning was performedfrom the parasternal, apical, and subcostal acoustic windows. Intravenouscontrast (Definity) was administered to enhance endocardial border detection thatwas not seen in two consecutive segments due to suboptimal baseline imagesand opacify the LV. Transthoracic echocardiogram. Complete 2D,complete spectral Doppler, and color Doppler. Birthdate: Patient birthdate: 1950. Age: Patient is 74year(s) old. Sex: gender: male. Height: 172.7cm. 68in. Weight: 111.1kg. 245lb. Body mass index: 37.3kg/m^2. Body surface area: 2.23m^2. Heart rate: 97bpm.Blood pressure: 117/80 Patient status: Inpatient. Study date: Studydate: 10/28/2024. Study time: 01:27 PM. Location: Emergency department. Prepared and Electronically Authenticated Giacomo Jeffrey M.D. 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 10/28/2024 12:43 PM CDT [facility] [employer] [facility] Blood Venipuncture / Unknown 10/28/2024 11:59 AM CDT 10/28/2024 12:02 PM CDT Narrative [facility] - 10/28/2024 12:43 PM CDT Troponin elevated. Delay in collection of timed specimen beyond recommended collection interval. Results must be interpreted in clinical context. Delta significant change. Paulino Grande MD CHEMISTRY ORDERABLES Final Resu lt Performing Organization Address City/[facility]/ZIP Co de Phone Number [facility] [id number] [place] [address] * TSH REFLEXIVE (10/28/2024 11:59 AM CDT) TSH 0.76 0.27 - 4.20 uIU/mL 10/28/2024 12:42 PM CDT [facility] Blood Venipuncture / Unknown 10/28/2024 11:59 AM CDT 10/28/2024 12:02 PM CDT Arie Perez MD CHEMISTRY ORDERABLES Final Resul t Performing Organization Address [facility] Co de Phone Number [facility] [id number] [place] [address] * LIPASE (10/28/2024 11:59 AM CDT) LIPASE 18 13 - 60 U/L 10/28/2024 12:42 PM CDT [facility] Blood Venipuncture / Unknown 10/28/2024 11:59 AM CDT 10/28/2024 12:02 PM CDT Arie Perez MD CHEMISTRY ORDERABLES Final Resul t Performing Organization Address City/[facility]/ZIP Co de Phone Number [facility] [id number] [place] [address] * (ABNORMAL) HEMOGLOBIN A1C (10/28/2024 11:59 AM CDT) HEMOGLOBIN A1C 6.5(H) <=5.6 % 10/28/2024 12:23 PM CDT [facility] EST. AVG GLUCOSE, A1C 140 mg/dL 10/28/2024 12:23 PM CDT [facility] Blood Venipuncture / Unknown 10/28/2024 11:59 AM CDT 10/28/2024 12:04 PM CDT Narrative [facility] - 10/28/2024 12:23 PM CDT HGB A1C INTERPRETATION NORMAL: <5.7% PRE-DIABETES: 5.7 - 6.4% DIABETES: 6.5% OR GREATER Arie Perez MD CHEMISTRY ORDERABLES Final Resul t [facility] CLIA# [id number] [place] [address] * XR CHEST PA OR AP 1 VW (10/28/2024 10:07 AM CDT) Anatomical Region Laterality Modality Chest Computed Radiogr aphy 10/28/2024 10:0 8 AM CDT Impressions 10/28/2024 10:11 AM CDT FINDINGS/IMPRESSION: A loop recorder device is present. Median sternotomy wires are midline.The lungs are clear without focal consolidation. There is no pleural effusion. No pneumothorax. The heart is enlarged. DICTATION LOCATION: Location - [facility] Narrative 10/28/2024 10:11 AM CDT EXAMINATION: XR CHEST PA OR AP 1 VW DATE: 10/28/2024 10:07 AM HISTORY: Chest Pain; See Reason for Exam COMPARISON: No prior study is available for comparison at the time of this dictation. Procedure Note Rancho Hilliard MD - 10/28/2024 EXAMINATION: XR CHEST PA OR AP 1 VW DATE: 10/28/2024 10:07 AM HISTORY: Chest Pain; See Reason for Exam COMPARISON: No prior study is available for comparison at the time of this dictation. FINDINGS/IMPRESSION: A loop recorder device is present. Median sternotomy wires are midline.The lungs are clear without focal consolidation. There is no pleural effusion. No pneumothorax. The heart is enlarged. DICTATION LOCATION: Location [address] [place] [address] us Paulino Grande MD DIAGNOSTIC IMAGING ORDERABLES F inal Result * EXTRA TUBE (BLUE) (10/28/2024 9:20 AM CDT) Blood Venipuncture / Unknown 10/28/2024 9:20 AM CDT 10/28/2024 11:03 AM CDT us Paulino Grande MD HEMATOLOGY ORDERABLES Final Res ult Performing Organization Address City/[facility]/ZIP Co de Phone Number [facility] [employer] [facility] CLIA# [id number] [place] [address] * (ABNORMAL) TROPONIN BASELINE, 5TH GEN (10/28/2024 9:20 AM CDT) TROPONIN T, BASELINE 5TH GEN 24(H) <=15 ng/L 10/28/2024 10:44 AM CDT [facility] [employer] [facility] Blood Venipuncture / Unknown 10/28/2024 9:20 AM CDT 10/28/2024 9:43 AM CDT Narrative [facility] [employer] [facility] - 10/28/2024 10:44 AM CDT Troponin elevated. us Paulino Grande MD CHEMISTRY ORDERABLES Final Resu lt Performing Organization Address City/[facility]/ZIP Co de Phone Number [facility] CLIA# [id number] [place] [address] * (ABNORMAL) CBC WITH DIFFERENTIAL (10/28/2024 9:20 AM CDT) WBC 11.6(H) 4.0 - 9.8 K/uL 10/28/2024 9:48 AM CDT [facility] LABORATORY [facility] RBC 3.93(L) 4.50 - 5.40 M/uL 10/28/2024 9:48 AM CDT [facility] HEMOGLOBIN 10.3(L) 13.6 - 16.5 g/dL 10/28/2024 9:48 AM CDT [facility]ORATORY SERVICES [facility] HEMATOCRIT 34.9(L) 40.0 - 48.0 % 10/28/2024 9:48 AM CDT [facility] LABORATORY SERVICES [facility] MCV 88.8 82.0 - 99.0 fL 10/28/2024 9:48 AM CDT [facility] LABORATORY SERVICES [facility] MCH 26.2(L) 27.2 - 32.6 pg 10/28/2024 9:48 AM CDT [facility] LABORATORY SERVICES [facility] MCHC 29.5(L) 31.5 - 35.5 g/dL 10/28/2024 9:48 AM CDT [facility] RDW 16.3(H) 11.5 - 14.5 % 10/28/2024 9:48 AM CDT [facility] RDW-STDEV 53.5(H) 37.1 - 48.7 fL 10/28/2024 9:48 AM CDT [facility] LABORATORY SERVICES [facility] PLATELETS 285 140 - 350 K/uL 10/28/2024 9:48 AM CDT [facility] LABOR[facility] MPV 9.0(L) 9.3 - 12.4 fL 10/28/2024 9:48 AM CDT [facility] LABORATORY SERVICES [facility] NEUTROPHILS 72 % 10/28/2024 9:48 AM CDT [facility] LABORATORY SERVICES [facility] LYMPHOCYTES 18 % 10/28/2024 9:48 AM CDT [facility] LABORATORY SERVICES [facility] MONOCYTES 7 % 10/28/2024 9:48 AM CDT [facility] LABORATORY SERVICES [facility] EOSINOPHILS 2 % 10/28/2024 9:48 AM CDT [facility] LABORATORY SERVICES [facility] BASOPHILS 0 % 10/28/2024 9:48 AM CDT [facility] LABORATORY SERVICES [facility] IMMATURE GRANULOCYTES 1 % 10/28/2024 9:48 AM CDT [facility] Comment:IG (Immature Granulo cyte) count includes Metamyelocytes, Myelocytes, and Promyelocytes NEUTROPHIL ABSOLUTE 8.28(H) 1.90 - 7.00 K/uL 10/28/2024 9:48 AM CDT [facility] LYMPHOCYTE ABSOLUTE 2.09 0.70 - 4.50 K/uL 10/28/2024 9:48 AM CDT [facility] MONOCYTE ABSOLUTE 0.79 0.10 - 1.30 K/uL 10/28/2024 9:48 AM CDT [facility] EOSINOPHIL ABSOLUTE 0.22 0.00 - 0.70 K/uL 10/28/2024 9:48 AM CDT [facility] BASOPHILS ABSOLUTE 0.05 0.00 - 0.20 K/uL 10/28/2024 9:48 AM CDT [facility] IMMATURE GRANULOCYTES ABSOLUTE 0.12(H) 0.00 - 0.03 K/uL 10/28/2024 9:48 AM CDT [facility] Blood Venipuncture / Unknown 10/28/2024 9:20 AM CDT 10/28/2024 9:48 AM CDT us Paulino Grande MD HEMATOLOGY ORDERABLES Final Res ult [facility] CLIA# [id number] [place] [address] * BRAIN NATRIURETIC PEPTIDE, BNP OR PROBNP (10/28/2024 9:20 AM CDT) PROBNP, N TERMINAL 204 0 - 900 pg/mL 10/28/2024 10:35 AM CDT [facility] Comment: INTERPRETIVE COMMENT based on diagnosis: Diagnostic NT pro-BNP cutoffs for Heart Failure in the absence of renal failure is suggested for the following ranges <75 years: <125 pg/mL >=75 years: <450 pg/mL Exclusionary rule out cut-point for Acute Decompensated Heart Failure(ADHF) All ages: <300 pg/mL Diagnostic NT pro-BNP cutoffs for Acute Decompensated Heart Failure(ADHF) in the absence of renal failure is suggested for the following ages <50 years: > 450 pg/mL 50-75 years: > 900 pg/mL >75 years: >1800 pg/mL Blood Venipuncture / Unknown 10/28/2024 9:20 AM CDT 10/28/2024 9:43 AM CDT Paulino Grande MD CHEMISTRY ORDERABLES Final Resu lt [facility] [id number] [place] [address] * Critical Care (10/28/2024 9:04 AM CDT) Narrative Paulino Grande MD - 10/28/2024 9:04 AM CDT Paulino Grande MD 10/28/2024 12:14 PM Critical Care Performed by: Paulino Grande MD Authorized by: Paulino Grande MD Critical care provider statement: Critical care time (minutes): 35 Critical care time was exclusive of: Separately billable procedures and treating other patients Critical care was necessary to treat or prevent imminent or life-threatening deterioration of the following conditions: Cardiac failure Critical care was time spent personally by me on the following activities: Discussions with consultants, pulse oximetry, re-evaluation of patient's condition, ordering and review of radiographic studies and ordering and review of laboratory studies Paulino Grande MD PROCEDURE/MINOR SURGICAL ORDERA BLES Final Result from Last 3 Months Insurance [facility] MCR Advance Directives For more information, please contact: [phone] Documents on File 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
== END 2024-12-24 14:25 | disposition home or self-care (01) ==
DX: S09.90XA Unspecified injury of head, initial encounter (principal); X58.XXXA Exposure to other specified factors, initial encounter; M19.011 Primary osteoarthritis, right shoulder
CPT/HCPCS: 70450; 73030